=== PATIENT | male | born 1955 | race Caucasian/White ===

== ENCOUNTER 2024-11-16 03:17 | Inpatient (IN) | payer OTHER ==
[2024-11-16] VITALS (9 sets, daily range): BP systolic 113–151; BP diastolic 77–86; PULSE 118–124; RESP 17–22; TEMP 97.2–98.5; O2SAT 94–99
[~2024-11-16] VITALS: Ht 188 cm; Wt 153.8 kg
--- NOTE | 2024-11-16 03:34 | ED.PDOC ---
History of Present Illness HPI Comments 68 y/o M, with a Hx of AFIB, CVA, DM, HTN, morbid obesity, and former tobacco abuse, is BIBA for c/o shortness of breath, productive cough, and fatigue, today. Per EMS report, patient endorses on unprovoked onset of progressively worsening symptoms for the past 3x days. Patient was noted to have been found w ith a SpO2 of 88%RA on scene and was placed on 4LPM O2 en route, with SpO2 improving to 95% upon arrival to ED. Upon time of assessment, patient also c/o bilateral leg swelling that has been ongoing for 1x week unprovoked. He further comments on symptoms improving whenever sitting upright and refutes any recent sick contact exposure along with any additional relevant or pertinent i nformation. Patient denies having any chest pain, palpitations, hemoptysis, fever, chills, or other associated symptoms or modifiers at this time. Time Seen by MD: 03:20 Reviewed Notes: Nurses Notes, Medications, Allergies Allergies: Coded Allergies: NO KNOWN ALLERGIES (Unverified , 11/16/24) Information Source: Patient Mode of Arrival: Ambulatory Severity: Moderate Timing: Days Duration: Since onset Prehospital treatment: None Past Medical History PAST MEDICAL HISTORY: AFIB, CVA, DM, HTN Past Medical History (Other): morbid obesity Surgical History: Denies all surgeries Family History Family History: Unknown Social History Smoker: Non-Smoker, Quit Greater Than 1 Year Alcohol: Denies ETOH Use Drugs: Denies Drug Use Lives In: Home Constitutional: reports: fatigue Respiratory: reports: cough (productive ), shortness of breath Musculoskeletal: reports: others (bilateral leg swelling ) All Other Systems: Reviewed and Negative (negative unless otherwise stated above or in HPI) Physical Exam General Appearance: No Apparent Distress, Obese HEENT: Normal ENT Inspection, Pharynx Normal, TMs Normal Neck: Full Range of Motion, Non-Tender, Normal, Normal Inspection Respiratory: Chest Non-Tender, No Accessory Muscle Use, No Respiratory Distress, Wheezing (bilateral upper and lower lobes ) Cardiovascular: No Edema, No JVD, No Murmur, No Gallop, Normal Peripheral Pulses, Regular Rate/Rhythm Breast Exam: Deferred Gastrointestinal: No Organomegaly, Non Tender, No Pulsatile Mass, Normal Bowel Sounds, Soft Genitalia: Deferred Pelvic: Deferred Rectal: Deferred Extremities: Leg edema (3+ pitting edema, bilaterally), No calf tenderness, Normal capillary refill, Normal range of motion, Non-tender, No pedal edema Musculoskeletal : Apperance: Normal Neurologic: Alert, manager enterprise II-XII nml as Tested, No Motor Deficits, Normal Affect, Normal Mood, No Sensory Deficits Cerebellar Function: Normal Reflexes: Normal Skin: Dry, Normal Color, Warm Lymphatic: No Adenopathy Was a procedure done? Was a procedure done?: No Differential Dx Considerations may include: CT, PE, PNA, URI, viral syndrome, pleural effusions X-Ray, Labs, Meds, VS Vital Signs Date Time Temp Pulse Resp B/P (MAP) Pulse Ox O2 Delivery O2 Flow Rate FiO2 11/16/24 04:41 133 11/16/24 04:37 123 22 94 Nasal Cannula* 4 36 11/16/24 04:10 97.9 132 22 144/91 (108) 94 97.9 11/16/24 03:51 138/97 11/16/24 03:45 132 11/16/24 03:38 20 95 Nasal Cannula* 4 36 11/16/24 03:38 95 Nasal Cannula* 4 36 11/16/24 03:20 98.7 129 15 138/97 (111) 95 Lab Test 11/16/24 05:20 11/16/24 04:41 11/16/24 04:10 11/16/24 03:42 Range/Units Lactic Acid Level Pending Troponin I High Sensitivity Pending 64 *H 60 *H </=54 ng/L Urine Color Yellow Yellow Urine Clarity Turbid H Clear Urine pH 5.5 5.0-9.0 Urine Specific [place] 1.022 1.001-1.035 Urine Protein 1+ H Negative Urine Ketones Negative Negative Urine Blood 2+ H Negative /uL Urine Nitrite Negative Negative Urine Bilirubin Negative Negative Urine Urobilinogen 2 H Negative mg/dL Urine Leukocyte Esterase 3+ Negative /uL Urine RBC 18 0 - 3 /hpf Urine WBC Clumps Present None Seen /hpf Urine Microscopic WBC 131 H 0-3 /HPF Urine Squamous Epithelial Cells Few <5 /hpf Urine Amorphous Crystals Few None Seen /hpf Urine Bacteria None seen None Seen /hpf Urine Glucose 4+ H Normal mg/dL White Blood Count 7.4 4.4-10.8 10^3/uL Red Blood Count 4.30 L 4.5-5.90 10^6/uL Hemoglobin 12.2 L 13.5-17.5 g/dL Hematocrit 37.9 L 41.0-53.0 % Mean Corpuscular Volume 88.0 80.0-100.0 fL Mean Corpuscular Hemoglobin 28.4 28.0-32.0 pg Mean Corpuscular Hemoglobin Concent 32.3 32.0-36.0 g/dL Red Cell Distribution Width 16.8 H 11.8-14.3 % Platelet Count 167 140-450 10^3/uL Mean Platelet Volume 8.2 6.9-10.8 fL Neutrophils (%) (Auto) 80.8 H 37.0-80.0 % Lymphocytes (%) (Auto) 5.2 L 10.0-50.0 % Monocytes (%) (Auto) 13.8 H 0.0-12.0 % Eosinophils (%) (Auto) 0.0 0.0-7.0 % Basophils (%) (Auto) 0.2 0.0-2.0 % Neutrophils # (Auto) 6.0 1.6-8.6 10 ^3/uL Lymphocytes # (Auto) 0.4 0.4-5.4 10 ^3/uL Monocytes # (Auto) 1.0 0-1.3 10 ^3/uL Eosinophils # (Auto) 0 0-0.8 10 ^3/uL Basophils # (Auto) 0 0-0.2 10 ^3/uL Nucleated Red Blood Cells 0.0 % Sodium Level 139 136-145 mmol/L Potassium Level 4.0 3.5-5.1 mmol/L Chloride Level 105 98-107 mmol/L Carbon Dioxide Level 26 20-31 mmol/L Anion Gap 8 5-15 Blood Urea Nitrogen 29 H 9-23 mg/dL Creatinine 1.49 H 0.700-1.30 mg/dL Glomerular Filtration Rate Calc 50 >90 mL/min BUN/Creatinine Ratio 19.5 10.0-20.0 Serum Glucose 131 H 74-106 mg/dL Calcium Level 8.4 L 8.7-10.4 mg/dL B-Type Natriuretic Peptide 1253.77 0-100 pg/mL Test 11/16/24 03:38 Range/Units Influenza Type A Antigen Positive Negative Influenza Type B Antigen Negative Negative SARS-CoV-2 Antigen (Rapid) Negative NEGATIVE Current Medications Medications (Trade) Dose Ordered Sig/Vin Route Start Time Stop Time Status Last Admin Ipratropium [place] (Atrovent Medneb) 0.5 mg ONCE ONCE NEB 11/16/24 03:30 11/16/24 03:31 DC 11/16/24 03:38 Furosemide (Lasix Injection) 40 mg ONCE ONCE IV 11/16/24 03:30 11/16/24 03:31 DC 11/16/24 03:51 Amiodarone HCl 100 ml @ 618 mls/hr ONCE ONCE IV 11/16/24 04:45 11/16/24 04:54 DC 11/16/24 05:03 Oseltamivir Phosphate (Tamiflu 75MG Capsule) 75 mg ONCE ONCE PO 11/16/24 05:00 11/16/24 05:01 DC 11/16/24 05:03 Sodium Chloride 2,400 ml @ 2,400 mls/hr ONCE ONCE IV 11/16/24 05:15 11/16/24 05:23 DC 11/16/24 05:25 Time of 1ST Reevaluation: 03:50 Reevaluation 1ST: Unchanged Patient Education/Counseling: Diagnosis, Treatment Family Education/Counseling: No Family Present Additional Information Ordered tests: EKG, CXR, troponin, BNP, BMP, CBC, influenza A&B and Covid19 ROBERTA antigen tests Concur with other providers interpretation of the following results: CXR Additional information source obtained: EMT Discuss plan and care with medical personal pt fits sepsis criteria, however, the fluid bolus will be stopped, since pt is also volume overloaded. he has influenza A as well. pt will be admitted for further treatments his rate will be controlled with amiodarone, and he will continue eliquis as inpatient. i have ordered lasix for his chf. i will add bumex. he is improving after the lasix Sepsis Sepsis Reasesment Focused Exam Sepsis focused exam: focus exam completed, time: (40) Departure 1 Departure Time of Disposition: 05:09 Impression: Primary Impression: Respiratory failure Qualified Codes: J96.01 - Acute respiratory failure with hypoxia Additional Impressions: Influenza A Reactive airway disease Qualified Codes: J45.41 - Moderate persistent asthma with (acute) exacerbation UTI (urinary tract infection) Qualified Codes: N30.00 - Acute cystitis without hematuria Atrial fibrillation with RVR CHF (congestive heart failure) Qualified Codes: I50.23 - Acute on chronic systolic (congestive) heart failure Disposition: ADMITTED INPATIENT Admit to: ICU Condition: Serious Critical Care Note Critical Care Time?: Yes (55 min-critical care time only) Critical care comment: Due to concerns for patients condition deteriorating, the care required my highest level of attention and readiness to intervene. I assessed the patient, reviewed the medical records, ordered the appropriate tests and treatments, then reassessed for results and responsiveness. I communicated with medical personnel and consultants and formulated a plan of care. Total critical care time excludes any procedures Stability Stability form required: No Heart Score Heart Score: Heart Score Response (Comments) Value History Slightly Suspicious 0 EKG Normal 0 Age >65 2 Risk Factors >3 or Hx ASHD 2 Troponin 1-2 x's Normal limit 1 Total 5 I personally scribed for EMER ALVA MD ([email or web address]) on 11/16/24 at 03:34. Electronically submitted by Bobby Luo ([email or web address]). EMRE ALVA MD Nov 16, 2024 03:34
[2024-11-16] MEDS: IPRATROPIUM BROM 0.5 MG/2.5ML INH SOL NEB ONE (03:38)
[2024-11-16] MEDS: FUROSEMIDE 40 MG/4 ML VIAL IV ONE (03:51)
[2024-11-16 04:00] LABS: Basophils # (auto) 0 10 ^3/uL (0-0.2); Basophils % (auto) 0.2 % (0.0-2.0); Eosinophils # (auto) 0 10 ^3/uL (0-0.8); Hematocrit 37.9 % (41.0-53.0); Hemoglobin 12.2 g/dL (13.5-17.5); Lymphocytes # (auto) 0.4 10 ^3/uL (0.4-5.4); Lymphocytes % (auto) 5.2 % (10.0-50.0); Mean Corpuscular Hemoglobin 28.4 pg (28.0-32.0); Mean Corpuscular Hgb Conc. 32.3 g/dL (32.0-36.0); Monocytes % (auto) 13.8 % (0.0-12.0); Neutrophils % (auto) 80.8 % (37.0-80.0); Platelet Count (auto) 167 10^3/uL (140-450); Red Cell Distribution Width 16.8 % (11.8-14.3); White Blood Cell 7.4 10^3/uL (4.4-10.8)
[2024-11-16 04:16] LABS: Chloride 105 mmol/L (98-107); Sodium 139 mmol/L (136-145)
[2024-11-16 04:17] LABS: Anion Gap 8 (5-15); Carbon Dioxide 26 mmol/L (20-31)
[2024-11-16 04:22] LABS: BUN/Creatinine Ratio 19.5 (10.0-20.0)
[2024-11-16 04:26] LABS: Urine Bacteria None Seen /hpf (None Seen)
[2024-11-16 04:38] LABS: Blood Urea Nitrogen 29 mg/dL (9-23); Calcium 8.4 mg/dL (8.7-10.4); Glucose 131 mg/dL (74-106)
[2024-11-16 04:46] LABS: Urine Amorphous Crystal FEW /hpf (None Seen); Urine Blood 2+ /uL (Negative); Urine Clarity Turbid (Clear); Urine Color Yellow (Yellow); Urine Protein, UAD 1+ (Negative); Urine Specific Gravity 1.022 (1.001-1.035); Urine Squamous Epithelial Cell FEW /hpf (<5); Urine Urobilinogen 2 mg/dL (Negative); Urine WBC 131 /HPF (0-3); Urine WBC Clumps PRESENT /hpf (None Seen); Urine pH 5.5 (5.0-9.0)
[2024-11-16 04:49] LABS: COVID19 ANTIGEN SOFIA FIA NEGATIVE (NEGATIVE); Rapid Influenza B Negative (Negative)
[2024-11-16 04:51] LABS: Rapid Influenza A Positive (Negative)
[2024-11-16] MEDS ORDERED: AMIODARONE 360mg/200mL PREMIX 200 ML IV SCH (05:00)
[2024-11-16] MEDS: AMIODARONE BOLUS KIT 100 ML IV ONE (05:03)
[2024-11-16] MEDS: OSELTAMIVIR 75 MG CAP PO ONE (05:03)
[2024-11-16] MEDS ORDERED: levoFLOXacin 500MG 100 ML IV SCH (05:15)
[2024-11-16] MEDS: AMIODARONE 360mg/200mL PREMIX 200 ML IV ONE ×2 (05:16→17:14)
--- NOTE | 2024-11-16 05:24 | DVH ---
CHEST RADIOGRAPH Indication: sob Technique: Single frontal view of the chest was obtained COMPARISON: None FINDINGS: Lines and Tubes: None Lungs: Multifocal airspace disease. Pleura: No effusion. No pneumothorax. Cardiomediastinal contours: Cardiomegaly Bones: Unremarkable IMPRESSION: Cardiomegaly Multifocal airspace disease.
[2024-11-16] MEDS: SODIUM CHLORIDE 0.9% 2,400 ML IV ONE (05:25)
[2024-11-16] MEDS ORDERED: levoFLOXacin 250MG 50 ML IV ONE (05:30)
[2024-11-16] MEDS: levoFLOXacin 250MG 50 ML IV ONE (05:33)
[2024-11-16] MEDS: BUMETANIDE 1mg/4ml VIAL (0.25mg/ml) IV ONE (05:35)
[2024-11-16] MEDS: NITROGLYCERIN 0.2MG/HR TOPICAL PATCH TD ONE (05:46)
[2024-11-16] MEDS ORDERED: hydrALAZINE HCL 20 MG/ML VL IV PRN (09:45)
[2024-11-16] MEDS ORDERED: HYDROcodone-ACET 5/325MG TAB PO PRN (09:45)
[2024-11-16] MEDS ORDERED: DOCUSATE SOD 100 MG CAP PO PRN (09:45)
[2024-11-16] MEDS ORDERED: ACETAMINOPHEN 325 MG TAB PO PRN (09:45)
[2024-11-16] MEDS ORDERED: DEXTROSE (50%) 50ML SYRG IV PRN (09:45)
[2024-11-16] MEDS ORDERED: ONDANSETRON HCL 4 MG/2 ML VIAL IV PRN (09:45)
--- NOTE | 2024-11-16 10:09 | DVHHP2 ---
History of Present Illness Reason for Visit: Acute respiratory failure with hypoxia History of Present Illness The patient is a 68-year-old male morbidly obese with past medical history of AFib, CVA, DM, and hypertension presented to [facility] ED with complaint of shortness of breaths. Patient reports symptoms progressively get worse with productive cough, fatigue, shortness a breath on exertion, hypoxia, O2 saturation of 88% on room air, increased work of breathing, bilateral extremity swelling, getting worse that prompted this visit. Patient was seen and evaluated in the ED, laboratory data shows WBC 7.4, platelets 167, sodium 139, potassium 4.0, BUN 29, creatinine 1.49, GFR 50, glucose 131, calcium 8.4 troponin 66, BNP 915.30, blood pressure 144/91, heart rate 126, temperature 97.9 F, O2 saturation improved to 94% on oxygen. Chest x-ray revealing cardiomegaly multifocal airspace disease, serology reports positive for influenza A. Patient was started on IV Lasix, given breathing treatment, please see medication orders section in the computer. On my assessment, patient denied chest pain, headache, no dizziness, no diaphoresis, currently on oxygen, no nausea, no vomiting, no fever, no chills. Patient was admitted for further evaluation medical management. Past Medical History AFIB, CVA, DM, HTN Past Surgical History Denies all surgeries Family History Reviewed, noncontributory to the management of this case. Past Social History Patient lives at home, quit smoking greater than 1 year, denies alcohol or illicit drugs abuse. Review of Systems Constitutional: Yes: Weakness, Other (Fatigue); No: Fever, Chills, Sweats, Malaise Eyes: No: Pain, Vision change, Conjunctivae inflammation, Eyelid inflammation, Other, Redness ENT: No: Ear pain, Ear discharge, Nose pain, Nose discharge, Nose congestion, Mouth pain, Mouth swelling, Throat pain, Throat swelling, Other Respiratory: Cough (Productive), Shortness of breath, SOB with excertion, Other (SOB at rest); No: Dry, Wheezing, Hemoptysis, Pleuritic Pain, Sputum, Wheezing Cardiovascular: No: Chest Pain, Palpitations, Orthopnea, Paroxysmal Noc. Dyspnea, Edema, Lt Headedness, Other Gastrointestinal: No: Nausea, Vomiting, Abdominal Pain, Diarrhea, Constipation, Melena, Hematochezia, Other Genitourinary: No Dysuria, No Frequency, No Incontinence, No Hematuria, No Retention, No Other Musculoskeletal: No: other, neck pain, shoulder pain, arm pain, back pain, hand pain, leg pain, foot pain Skin: No: Rash, Lesions, Jaundice, Bruising, Other Neurological: No: Weakness, Numbness, Incoordination, Change in speech, Confusion, Seizures, Other Allergies: Coded Allergies: NO KNOWN ALLERGIES (Unverified , 11/16/24) Medications Current Medications Medications Dose Ordered Sig/Vin Route Start Time Stop Time Status Last Admin Dose Admin Ipratropium [place] 0.5 mg Q4HPRN PRN NEB 11/16/24 09:45 Levalbuterol HCl 0.625 mg Q6HR NEB 11/16/24 12:00 Methylprednisolone Sodium Succinate 40 mg Q8HR IV 11/16/24 14:00 Famotidine 20 mg Q12HR IV 11/16/24 10:00 Levofloxacin 50 ml @ 50 mls/hr DAILY IV 11/16/24 10:00 Ceftriaxone Sodium 50 ml @ 100 mls/hr DAILY@09 IV 11/16/24 09:48 Oseltamivir Phosphate 75 mg Q12HR PO 11/16/24 10:00 11/21/24 09:59 Aspirin 81 mg DAILY PO 11/17/24 10:00 Carvedilol 12.5 mg Q12HR PO 11/16/24 10:00 Hydralazine HCl 10 mg Q6HP PRN IV 11/16/24 09:45 Diagnostic Test (Pha) 1 strip ACHS 11/16/24 11:30 Insulin Human Regular ACHS SC 11/16/24 11:30 Dextrose 50 ml UD PRN IV 11/16/24 09:45 Sodium Chloride 10 ml Q8HR IV 11/16/24 14:00 Acetaminophen/ Hydrocodone Bitart 1 tab Q4HP PRN PO 11/16/24 09:45 Ondansetron HCl 4 mg Q4HP PRN IV 11/16/24 09:45 Docusate Sodium 100 mg BIDPRN PRN PO 11/16/24 09:45 Acetaminophen 650 mg Q6HP PRN PO 11/16/24 09:45 Exam Vital Signs Vital Signs Date Time Temp Pulse Resp B/P (MAP) Pulse Ox O2 Delivery O2 Flow Rate FiO2 11/16/24 09:56 20 151/86 2.0 95 11/16/24 08:00 127 11/16/24 07:25 Nasal Cannula* 11/16/24 06:10 95 11/16/24 04:10 97.9 97.9 General Appearance: Alert, Oriented X3, Cooperative, No acute distress HEENT: Atraumatic, PERRLA, EOMI, Mucous membr. moist/pink Respiratory: Normal air movement, Other (Diminished breath sounds) Cardiovascular: Regular rate, Normal S1, Normal S2, No murmurs Abdominal: Normal bowel sounds, Soft, No tenderness, No hepatospenomegaly, No masses Extremities: No clubbing, No cyanosis, No edema, Normal pulses, No tenderness/swelling Skin: No rashes, No breakdown, No significant lesion Neuro: Normal speech, Normal tone, Sensation intact, Cranial nerves 3-12 NL, Reflexes 2+, Other (Generalized weakness) Psych/Mental Status: Mental status NL, Mood NL Labs/Xrays Labs Test 11/16/24 09:54 11/16/24 05:20 11/16/24 04:10 11/16/24 03:42 Range/Units Lactic Acid Level 0.7 0.4-2.0 mmol/L Urine Color Yellow Yellow Urine Clarity Turbid H Clear Urine pH 5.5 5.0-9.0 Urine Specific [place] 1.022 1.001-1.035 Urine Protein 1+ H Negative Urine Ketones Negative Negative Urine Blood 2+ H Negative /uL Urine Nitrite Negative Negative Urine Bilirubin Negative Negative Urine Urobilinogen 2 H Negative mg/dL Urine Leukocyte Esterase 3+ Negative /uL Urine RBC 18 0 - 3 /hpf Urine WBC Clumps Present None Seen /hpf Urine Microscopic WBC 131 H 0-3 /HPF Urine Squamous Epithelial Cells Few <5 /hpf Urine Amorphous Crystals Few None Seen /hpf Urine Bacteria None seen None Seen /hpf Urine Glucose 4+ H Normal mg/dL White Blood Count 7.4 4.4-10.8 10^3/uL Red Blood Count 4.30 L 4.5-5.90 10^6/uL Hemoglobin 12.2 L 13.5-17.5 g/dL Hematocrit 37.9 L 41.0-53.0 % Mean Corpuscular Volume 88.0 80.0-100.0 fL Mean Corpuscular Hemoglobin 28.4 28.0-32.0 pg Mean Corpuscular Hemoglobin Concent 32.3 32.0-36.0 g/dL Red Cell Distribution Width 16.8 H 11.8-14.3 % Platelet Count 167 140-450 10^3/uL Mean Platelet Volume 8.2 6.9-10.8 fL Neutrophils (%) (Auto) 80.8 H 37.0-80.0 % Lymphocytes (%) (Auto) 5.2 L 10.0-50.0 % Monocytes (%) (Auto) 13.8 H 0.0-12.0 % Eosinophils (%) (Auto) 0.0 0.0-7.0 % Basophils (%) (Auto) 0.2 0.0-2.0 % Neutrophils # (Auto) 6.0 1.6-8.6 10 ^3/uL Lymphocytes # (Auto) 0.4 0.4-5.4 10 ^3/uL Monocytes # (Auto) 1.0 0-1.3 10 ^3/uL Eosinophils # (Auto) 0 0-0.8 10 ^3/uL Basophils # (Auto) 0 0-0.2 10 ^3/uL Nucleated Red Blood Cells 0.0 % Sodium Level 139 136-145 mmol/L Potassium Level 4.0 3.5-5.1 mmol/L Chloride Level 105 98-107 mmol/L Carbon Dioxide Level 26 20-31 mmol/L Anion Gap 8 5-15 Blood Urea Nitrogen 29 H 9-23 mg/dL Creatinine 1.49 H 0.700-1.30 mg/dL Glomerular Filtration Rate Calc 50 >90 mL/min BUN/Creatinine Ratio 19.5 10.0-20.0 Serum Glucose 131 H 74-106 mg/dL Calcium Level 8.4 L 8.7-10.4 mg/dL Test 11/16/24 03:38 Range/Units Influenza Type A Antigen Positive Negative Influenza Type B Antigen Negative Negative SARS-CoV-2 Antigen (Rapid) Negative NEGATIVE PATIENT: TREVIN SOTELO ACCT: [id number] UNIT: [id number] : 1955 LOC: ER ROOM / BED: / AGE / SEX: 68 / M ADM STATUS: REG ER SERVICE [id number] ORDERING PHYSICIAN: EMRE ALVA MD PROCEDURE(s): CXRP - CHEST PORTABLE REASON: sob ORDER NUMBER(s): [id number], ACCESSION NUMBER(s): [id number] CHEST RADIOGRAPH Indication: sob Technique: Single frontal view of the chest was obtained COMPARISON: None FINDINGS: Lines and Tubes: None Lungs: Multifocal airspace disease. Pleura: No effusion. No pneumothorax. Cardiomediastinal contours: Cardiomegaly Bones: Unremarkable IMPRESSION: Cardiomegaly Multifocal airspace disease. Assessment/Plan Assessment/Plan Acute respiratory failure with hypoxia Influenza A Elevated troponin Pneumonia, unspecified organism Reactive airway disease Morbid obesity Moderate persistent asthma with (acute) exacerbation UTI (urinary tract infection) Acute cystitis without hematuria Atrial fibrillation with RVR Acute on chronic systolic (congestive) heart failure Plan 1. Admit to telemetry unit 2. Breathing treatment 3. Pain control management 4. IV antibiotic management 5. Management of fluids and electrolytes 6. Consultation for hospitalist/pulmonology 7. Diagnostic test chest x-ray 8. DVT prophylaxis-on aspirin 9. Repeat labs CBC, CMP in a.m. 10. Home medication reviewed and reconciled 11. Continue with current medical management 12. Treatment plan discussed with patient and RN. Patient verbalized understanding. Plan discussed with: Patient, Other (RN) My Orders Orders - BEVERLY MITCHELL DNP Procedure Category Date Status Time *Consult CONS 11/16/24 Transmitted / 09:31 Ipratropium Medneb PHA 11/16/24 In Process (Atrovent Medneb) 09:45 Levalbuterol Hcl PHA 11/16/24 In Process (Xopenex Medneb) 12:00 Methylprednisolone PHA 11/16/24 In Process Sod Succ (Solu Medrol 14:00 Famotidine Injection PHA 11/16/24 In Process (Pepcid Injection) 10:00 Levofloxacin 250mg PHA 11/16/24 In Process (Levaquin 250mg) 10:00 Urine Bacterial AYSHA 11/16/24 Logged Culture 09:31 Oseltamivir 75mg PHA 11/16/24 In Process Capsule (Tamiflu 75mg 10:00 Troponin-I Hs LAB 11/16/24 In Process 10:31 Troponin-I Hs LAB 11/16/24 Logged 14:00 B-Type Natriuretic LAB 11/16/24 In Process Peptide 09:31 Consistent DIET 11/16/24 Transmitted Carb(Ccho)Diabetes Lunch Carvedilol Tablet PHA 11/16/24 In Process (Coreg Tablet) 10:00 Hydralazine Injection PHA 11/16/24 In Process (Apresoline Inject 09:45 Glucose Blood PHA 11/16/24 In Process (Accu-Chek Comfort 11:30 Insulin R (Human) PHA 11/16/24 In Process (Insulin R) 11:30 Dextrose 50% Syringe PHA 11/16/24 In Process 09:45 Allergies DA 11/16/24 In Process 09:31 Code Status CODE 11/16/24 Transmitted 09:31 Sodium Chloride Lock PHA 11/16/24 In Process (Saline Lock Ns) 14:00 Oxygen Per Hour RT 11/16/24 Transmitted 09:31 Hydrocodone-Acet PHA 11/16/24 In Process 5/325mg Tab ([place] 09:45 Ondansetron Hcl PHA 11/16/24 In Process (Zofran) 09:45 Docusate Sodium PHA 11/16/24 In Process Capsule (Colace 09:45 Complete Blood Count LAB 11/17/24 Verified 04:00 Comprehensive LAB 11/17/24 Verified Metabolic Panel 04:00 Condition: Serious DA 11/16/24 In Process 09:31 Acetaminophen Tablet PHA 11/16/24 In Process (Tylenol Tablet) 09:45 Bedrest With Bathroom DA 11/16/24 In Process Privileg 09:31 Sequential DA 11/16/24 In Process Compression Device Aspirin Tablet PHA 11/17/24 In Process 10:00 Ceftriaxone 1gm/50ml PHA 11/16/24 In Process D5w (Rocephin) 09:48 Problem List: (1) Acute respiratory failure with hypoxia (2) Atrial fibrillation with RVR (3) Influenza A (4) Reactive airway disease (5) UTI (urinary tract infection) (6) Morbid obesity (7) Elevated troponin (8) Acute cystitis without hematuria (9) Pneumonia, unspecified organism (10) Moderate persistent asthma with (acute) exacerbation (11) Acute on chronic systolic (congestive) heart failure Date of Service: Nov 16, 2024 Billing Provider: BEVERLY MITCHELL DNP Common Visit Codes: 53323-FLBXJSI INP/OBS CARE (HIGH) BEVERLY MITCHELL DNP Nov 16, 2024 10:09
[2024-11-16] MEDS: cefTRIAXone 1GM/50ML D5W 50 ML IV SCH (10:12)
[2024-11-16] MEDS: methylPREDNISolone SOD SUCC 125 MG/2 ML VL IV ONE (10:15)
[2024-11-16] MEDS ORDERED: MORPHINE SULFATE INJ 2 MG/ml SYRG IV PRN (10:15)
[2024-11-16] MEDS ORDERED: NITROGLYCERIN 0.4 MG SL TAB SL PRN (10:15)
[2024-11-16] MEDS: ASPirin 81 mg TAB PO ONE (10:18)
[2024-11-16] MEDS: OSELTAMIVIR 75 MG CAP PO SCH (10:19)
[2024-11-16] MEDS: CARVEDILOL 12.5 MG TAB PO SCH ×2 (10:19→23:16)
[2024-11-16] MEDS: levoFLOXacin 250MG 50 ML IV SCH (10:44)
[2024-11-16] MEDS: FAMOTIDINE (10MG/ML) 2ML VL IV SCH (10:44)
[2024-11-16] MEDS: LEVALBUTEROL HCL 1.25 MG/3 ML NEB NEB SCH (11:01)
[2024-11-16] MEDS: ACCU-CHEK COMFORT CURVE STRIP VI SCH (11:59)
[2024-11-16] MEDS: InsuLIN REG 1unit/0.01ml Soln (100units/ml) SC SCH (11:59)
[2024-11-16] MEDS: SODIUM CHLOR 0.9% PF (SALINE LOCK) 10ML VIAL/SYR IV SCH (13:51)
[2024-11-16] MEDS: methylPREDNISolone SOD SUCC 40 MG/ML VL IV SCH (13:52)
--- NOTE | 2024-11-16 14:38 | DVHSR ---
APPROVED REPORT EXAM: Two-dimensional and M-mode echocardiogram with Doppler and color Doppler. Blood Pressure: 117/85 mmHg INDICATION Heart Failure RISK FACTORS Height: 6'1", Weight: 220 DIMENSIONS LVDd6.3 (3.8-5.7cm)LA (2D)5.6 (1.9-4.0cm)Aortic Root3.9 (2.0-3.7cm) LVDs5.5 (2.5-4.0cm)LA (MM) (1.9-4.0cm)Aortic Cusp Exc2.2 (1.5-2.0cm) EF (%) 27.0 (55-70%)Rt. Atrium6.3 (1.9-4.0cm)Asc. Aorta cm IVSd1.7 (0.7-1.1cm)RV (D)5.2 (1.8-2.4cm) PWd1.4 (0.7-1.1cm) Mitral Valve MitralMitral Stenosis E/A ratio0.02D MVAcm2 Aortic Valve Aortic ValveAortic Stenosis V10.68m/Cookie Mean GR.2mmHg V20.88m/Cookie Peak GR.3mmHg LVOT Diameter2.5 (1.8-2.4cm)Doppler AVA3.79cm2 Tricuspid Valve TR Velocity2.56m/s [id number] LEFT VENTRICLE The left ventricle is dilated in size. Wall thickness is femtezln-vu-tqiuur early increased. Ejecti on fraction is decreased and is estimated at 25%. Patient is tachycardic at the time of the study th at is limits interpretation of ejection fraction. There is global hypokinesis. There is flattening of the intraventricular septum during diastole suggestive of right-sided volume overload. Diastolic function is indeterminate. RIGHT VENTRICLE The right ventricle is severely dilated in size. Systolic function is moderately decreased. ATRIA Left atrium is moderately dilated in size. Right atrium is severely dilated in size. The intra-atri al septum is not well visualized. MITRAL VALVE Normal in structure and function. There is mild mitral regurgitation. PULMONIC VALVE Likely normal. TRICUSPID VALVE There is wjzpiuzw-pm-jyeruw tricuspid regurgitation. Severity is not well assessed. PA systolic pre ssure is estimated at 45-50 mm Hg. AORTIC VALVE Normal structure and function. GREAT VESSELS Aortic root measures 3.9 cm in diameter at the level of the sinuses of Valsalva. Proximal ascending aorta isn't visualized. PERICARDIAL EFFUSION There is small circumferential pericardial effusion. IVC is dilated in size. Other Information Quality : Technically LimitedRhythm : Technically limited study due to body habitus and coughing Conclusion The study is technically limited. Dilated left ventricle with severely decreased systolic function. The patient was tachycardic at the time of the study which limits interpretation of ejection fraction . Ejection fraction is estimated at 25%. There is global hypokinesis and flattening of the intraventricular septum during diastole suggestive of right-sided volume overload. Lgqipken-id-fbhpzy left ventricular hypertrophy most prominent in the septum. Severely dilated right ventricle with moderately decreased systolic function. Severely dilated right atrium and moderately dilated left atrium. Vpasqdlt-kt-wynqgx tricuspid regurgitation. PA systolic pressure is estimated at 45-50 mm Hg. Small circumferential pericardial effusion. There is no prior study for comparison.
--- NOTE | 2024-11-16 17:04 | DVHINCON2 ---
Date Seen: Nov 16, 2024 Referring Physician RAUL Kelly Reason for Consultation CHF History of Present Illness This is a 68-year-old man who presented to the emergency room via EMS with a chief complaint of flu-like symptoms for four days. The patient presented with complaints of flu-like symptoms including shortness of breath, a productive cough, generalized weakness, some abdominal pain and bilateral lower extremity edema. He was found with an oxygen saturation level of 88% on room air for which he was provided supplemental oxygenation with improved O2 sats. Denies chest pain, palpitations, diaphoresis, dizziness, or syncopal events. He underwent multiple 12 lead electrocardiograms revealing an atrial fibrillation rhythm with a rapid ventricular rate and an associated right bundle branch block. Serial troponin levels peaked at 66 ng/L. The patient is a poor historian and could not provide cardiac information. Significant medical history includes paroxysmal atrial fibrillation on amiodarone/Eliquis therapy, congestive heart failure, hypertension, diabetes mellitus type 2, history of CVA, and obesity. Past Medical History Past medical history reviewed. No other significant than mentioned above. Past Surgical History Left knee surgery Family History Unable to retrieve family history at this time. Social History Unable to retrieve social history at this time. Allergies: Coded Allergies: NO KNOWN ALLERGIES (Unverified , 11/16/24) Home Meds Home medications reviewed. Current Medications Current Medications Medications (Trade) Dose Ordered Sig/Vin Route PRN Reason Start Time Stop Time Status Last Admin Levofloxacin/ Dextrose 100 ml @ 50 mls/hr Q24H IV 11/16/24 05:15 11/16/24 05:26 DC Ipratropium [place] (Atrovent Medneb) 0.5 mg Q4HPRN PRN NEB SHORTNESS OF BREATH 11/16/24 09:45 Levalbuterol HCl (Xopenex Medneb) 0.625 mg Q6HR NEB 11/16/24 12:00 11/16/24 11:01 Methylprednisolone Sodium Succinate (Solu Medrol) 40 mg Q8HR IV 11/16/24 14:00 Famotidine (Pepcid Injection) 20 mg Q12HR IV 11/16/24 10:00 11/16/24 10:44 Levofloxacin 50 ml @ 50 mls/hr DAILY IV 11/16/24 10:00 11/16/24 10:44 Ceftriaxone Sodium 50 ml @ 100 mls/hr DAILY@09 IV 11/16/24 09:48 11/16/24 10:12 Oseltamivir Phosphate (Tamiflu 75MG Capsule) 75 mg Q12HR PO 11/16/24 10:00 11/21/24 09:59 11/16/24 10:19 Aspirin 81 mg DAILY PO 11/17/24 10:00 Carvedilol (Coreg Tablet) 12.5 mg Q12HR PO 11/16/24 10:00 11/16/24 10:19 Hydralazine HCl (Apresoline Injection) 10 mg Q6HP PRN IV SBP>150 11/16/24 09:45 Diagnostic Test (Pha) (Accu-Chek Comfort Curve T) 1 strip ACHS 11/16/24 11:30 11/16/24 11:59 Insulin Human Regular (InsuLIN R) ACHS SC 11/16/24 11:30 11/16/24 11:59 Dextrose 50 ml UD PRN IV Blood Sugar LESS THAN 60 11/16/24 09:45 Sodium Chloride (Saline Lock Ns) 10 ml Q8HR IV 11/16/24 14:00 11/16/24 13:51 Acetaminophen/ Hydrocodone Bitart ([place] 5/325MG Tab) 1 tab Q4HP PRN PO MODERATE PAIN (4-6 PAIN SCALE) 11/16/24 09:45 Ondansetron HCl (Zofran) 4 mg Q4HP PRN IV NAUSEA / VOMITING 11/16/24 09:45 Docusate Sodium (Colace Capsule) 100 mg BIDPRN PRN PO FOR CONSTIPATION 11/16/24 09:45 Acetaminophen (Tylenol Tablet) 650 mg Q6HP PRN PO PAIN SCALE 1-3 OR TEMP>100.4 11/16/24 09:45 Nitroglycerin (Ntrostat Sublingual) 0.4 mg Q5MINP PRN SL FOR CHEST PAIN 11/16/24 10:15 Morphine Sulfate 2 mg Q30M PRN IV FOR CHEST PAIN 11/16/24 10:15 Furosemide (Lasix Injection) 40 mg DAILY IV 11/17/24 10:00 Review of Systems Constitutional: Generalized weakness, flu-like symptoms, Ears, Nose, & Throat: No symptom reported Eyes: No symptom reported Neurological: No symptoms reported Pulmonary/Respiratory: SOB Cardiovascular: BLE edema Gastrointestinal: No symptom reported Genitourinary: No symptom reported Musculoskeletal: No symptom reported Skin: No symptom reported Psychiatric: No symptom reported Endocrine: No symptom reported Hemotologic/Lymphatic: No symptom reported Vital Signs Vital Signs Date Time Temp Pulse Resp B/P (MAP) Pulse Ox O2 Delivery O2 Flow Rate FiO2 11/16/24 14:00 95.3 105/69 (81) 95.3 11/16/24 11:19 120 11/16/24 11:07 20 98 11/16/24 11:01 Nasal Cannula* 6 44 Physical Exam General Appearance: Lethargic. Obese. Overloaded. Acute respiratory distress, tachypneic Head Exam: Normal inspection Neck Exam: Normal inspection. Non-tender. Normal alignment Pulmonary/Respiratory: Coarse bilateral breath sounds. O2 via NC. Tachypneic Cardiovascular/Chest: Irregularly irregular rate and rhythm. A-fib with RVR. + JVD. Peripheral Pulses: 2+ Radial (R). 2+ Radial (L). 2+ Pedal (R). 2+ Pedal (L) Abdominal Exam: Normal bowel sounds. Soft. Nontender. No hepatospenomegaly. No masses Ankle Exam: Positive ankle edema, ++ Lower extremities: Positive lower extremity edema, ++ Neuro/Mental Status: A&O x3. Coherent. Somewhat poor historian Thoughts/Psych: Normal thought pattern. Appearance: Acute respiratory distress Skin Exam: Hyperpigmented BLE Labs/Diagnostic Data Labs Test 11/16/24 14:11 11/16/24 11:48 11/16/24 09:54 11/16/24 05:20 Range/Units Troponin I High Sensitivity 48 </=54 ng/L POC Glucose 156 H 70-106 mg/dl B-Type Natriuretic Peptide 915.30 0-100 pg/mL Lactic Acid Level 0.7 0.4-2.0 mmol/L Test 11/16/24 04:10 11/16/24 03:42 11/16/24 03:38 Range/Units Urine Color Yellow Yellow Urine Clarity Turbid H Clear Urine pH 5.5 5.0-9.0 Urine Specific [place] 1.022 1.001-1.035 Urine Protein 1+ H Negative Urine Ketones Negative Negative Urine Blood 2+ H Negative /uL Urine Nitrite Negative Negative Urine Bilirubin Negative Negative Urine Urobilinogen 2 H Negative mg/dL Urine Leukocyte Esterase 3+ Negative /uL Urine RBC 18 0 - 3 /hpf Urine WBC Clumps Present None Seen /hpf Urine Microscopic WBC 131 H 0-3 /HPF Urine Squamous Epithelial Cells Few <5 /hpf Urine Amorphous Crystals Few None Seen /hpf Urine Bacteria None seen None Seen /hpf Urine Glucose 4+ H Normal mg/dL White Blood Count 7.4 4.4-10.8 10^3/uL Red Blood Count 4.30 L 4.5-5.90 10^6/uL Hemoglobin 12.2 L 13.5-17.5 g/dL Hematocrit 37.9 L 41.0-53.0 % Mean Corpuscular Volume 88.0 80.0-100.0 fL Mean Corpuscular Hemoglobin 28.4 28.0-32.0 pg Mean Corpuscular Hemoglobin Concent 32.3 32.0-36.0 g/dL Red Cell Distribution Width 16.8 H 11.8-14.3 % Platelet Count 167 140-450 10^3/uL Mean Platelet Volume 8.2 6.9-10.8 fL Neutrophils (%) (Auto) 80.8 H 37.0-80.0 % Lymphocytes (%) (Auto) 5.2 L 10.0-50.0 % Monocytes (%) (Auto) 13.8 H 0.0-12.0 % Eosinophils (%) (Auto) 0.0 0.0-7.0 % Basophils (%) (Auto) 0.2 0.0-2.0 % Neutrophils # (Auto) 6.0 1.6-8.6 10 ^3/uL Lymphocytes # (Auto) 0.4 0.4-5.4 10 ^3/uL Monocytes # (Auto) 1.0 0-1.3 10 ^3/uL Eosinophils # (Auto) 0 0-0.8 10 ^3/uL Basophils # (Auto) 0 0-0.2 10 ^3/uL Nucleated Red Blood Cells 0.0 % Sodium Level 139 136-145 mmol/L Potassium Level 4.0 3.5-5.1 mmol/L Chloride Level 105 98-107 mmol/L Carbon Dioxide Level 26 20-31 mmol/L Anion Gap 8 5-15 Blood Urea Nitrogen 29 H 9-23 mg/dL Creatinine 1.49 H 0.700-1.30 mg/dL Glomerular Filtration Rate Calc 50 >90 mL/min BUN/Creatinine Ratio 19.5 10.0-20.0 Serum Glucose 131 H 74-106 mg/dL Calcium Level 8.4 L 8.7-10.4 mg/dL Influenza Type A Antigen Positive Negative Influenza Type B Antigen Negative Negative SARS-CoV-2 Antigen (Rapid) Negative NEGATIVE Assessment Sepsis with PNA/Influenza A Acute hypoxic respiratory failure secondary to above Acute on chronic decompensated HFrEF, NYHA Class IV Paroxysmal atrial fibrillation with rapid ventricular rate, on amiodarone/Eliquis at home NSTEMI likely type II secondary to above Hypertension Diabetes mellitus Type II Hx of CVA Likely ERICA on CKD Obesity Plan/Recommendation We will continue the following plan/recommendations (Dr. Thomas): * Echocardiogram revealed EF 25% * There is global hypokinesis and flattening of the intraventricular septum during diastole suggestive of right-sided volume overload. M [id number]-[id number] left ventricular hypertrophy most prominent in the septum. Severely dilated right ventricle with moderately decreased systolic function. Severely dilated right atrium and moderately dilated left atrium. [id number] tricuspid regurgitation. PA systolic pressure is estimated at 45-50 mmHg. Small circumferential pericardial effusion. * Preload and afterload reduction as tolerated * Initiate GDMT for CHF as hemodynamics permit * Hold Eliquis therapy. Initiate therapeutic Lovenox * Antiarrhythmic, initiate amiodarone drip * ABX therapy per primary care team * Monitor ECG changes closely and notify Thank you for allowing us to participate in this patient's care. Please call if you have any questions or concerns. Critical care time: 40 min. This medical document was created using an electronic medical record system with voice recognition software and computerized dictation system. Although this document has been carefully reviewed, there might still be some phonetic and typographical errors. Occasional wrong-word or ``sound-alike substitutions may have occurred due to the inherent limitations of voice recognition software. These areas are purely typographical due to imperfections of the software programs and do not reflect any compromise in the patient's medical care. Please read the chart carefully and recognize, using context, where these substitutions have occurred. Plan discussed with: Patient, Other NYHA Physical activity limitations: Class4(Severe)discomfort (w any activit,symptoms at rest) Date of Service: Nov 16, 2024 Billing Provider: KATELYN FUCHS GRAV[employer] PROSPECTING OBSERVER HELPER Cardiology Common Codes: 30441-[id number] CARE 30-[address] [facility] Nov 16, 2024 17:04
--- NOTE | 2024-11-16 17:14 | ECG ---
[facility] Test Date: 2024-11-16 Test Time: 03:45:54 Pat Name: TREVIN SOTELO Department: ED Room: 0297T Gender: M Calculation Reviewer: LEYDA : 1955 Requested By: EMRE ALVA Order Number: [id number] Reading MD: Rich Velasquez Measurements Intervals [place] Rate: 132 P: 0 IN: 0 QRS: 103 QRSD: 169 T: -1 QT: 352 QTc: 522 Interpretive Statements Atrial fibrillation Right bundle branch block Baseline wander in lead(s) V2 Electronically Signed On 11-18-2024 8:52:10 PST by Rich Velasquez Please click the below link to view image of tracing.
--- NOTE | 2024-11-16 17:15 | ECG ---
[facility] Test Date: 2024-11-16 Test Time: 04:41:15 Pat Name: TREVIN SOTELO Department: ED Room: 0297T Gender: M Crime Investigator Special Agent: LEYDA : 1955 Requested By: EMRE ALVA Order Number: [id number] Reading MD: Rich Velasquez Measurements Intervals [place] Rate: 133 P: 172 [place]: 76 QRS: 197 QRSD: 177 T: 20 QT: 351 QTc: 523 Interpretive Statements Sinus or ectopic atrial tachycardia Atrial premature complex Consider dextrocardia Baseline wander in lead(s) V1,V4 Electronically Signed On 11-18-2024 8:52:14 PST by Rich Velasquez Please click the below link to view image of tracing.
[2024-11-16 17:23] LABS: Magnesium 2.5 mg/dL (1.6-2.6)
[2024-11-16] MEDS: FUROSEMIDE 40 MG/4 ML VIAL IV SCH (18:13)
[2024-11-16] MEDS: IPRATROPIUM BROM 0.5 MG/2.5ML INH SOL NEB PRN (19:17)
[2024-11-16] MEDS: ENOXAPARIN SOD 100 MG/1 ML SYRINGE SC SCH (23:15)
[2024-11-16] MEDS: AMIODARONE 360mg/200mL PREMIX 200 ML IV SCH (23:39)
[2024-11-17] VITALS (16 sets, daily range): BP systolic 103–133; BP diastolic 55–95; PULSE 60–125; RESP 17–20; TEMP 97.3–98.5; O2SAT 91–100
[2024-11-17 08:09] LABS: Hematocrit 39.1 % (41.0-53.0); Hemoglobin 12.6 g/dL (13.5-17.5); Mean Corpuscular Hemoglobin 28.4 pg (28.0-32.0); Mean Corpuscular Hgb Conc. 32.4 g/dL (32.0-36.0); Mean Corpuscular Volume 87.8 fL (80.0-100.0); Platelet Count (auto) 168 10^3/uL (140-450); Red Blood Cells 4.45 10^6/uL (4.5-5.90); Red Cell Distribution Width 16.5 % (11.8-14.3); White Blood Cell 7.3 10^3/uL (4.4-10.8)
--- NOTE | 2024-11-17 08:10 | DVH ---
EXAM: XR Chest, 1 View CLINICAL INDICATION: PNA/CHF TECHNIQUE: Frontal view of the chest. COMPARISON: XY CHEST PORTABLE on DOS: 11/16/24 FINDINGS: LUNGS AND PLEURAL SPACES: See below. HEART: Cardiomegaly with pulmonary congestion and edema. Superimposed pneumonia cannot be excluded. MEDIASTINUM: Unremarkable. Normal mediastinal contour. BONES/JOINTS: Unremarkable. No acute fracture. OTHER FINDINGS: . . IMPRESSION: Cardiomegaly with pulmonary congestion and edema. Superimposed pneumonia cannot be excluded.
[2024-11-17 08:30] LABS: Alanine Aminotransferase 26 U/L (7-40); Albumin 3.4 g/dL (3.2-4.8); Alkaline Phosphatase 106 U/L (46-116); Anion Gap 7 (5-15); Aspartate Aminotransferase 23 U/L (13-40); BUN/Creatinine Ratio 22.6 (10.0-20.0); Carbon Dioxide 26 mmol/L (20-31); Chloride 106 mmol/L (98-107); Potassium 3.8 mmol/L (3.5-5.1); Sodium 139 mmol/L (136-145)
[2024-11-17 08:31] LABS: Bilirubin, Total 0.4 mg/dL (0.2-1.0); Blood Urea Nitrogen 37 mg/dL (9-23); Calcium 8.3 mg/dL (8.7-10.4); Glucose 226 mg/dL (74-106); Total Protein 6.7 g/dL (5.7-8.2)
[2024-11-17 08:48] LABS: Band Neutrophils % (manual) 0; Basophils % (manual) 0 (0.0-2.0); Blast Cells 0; Eosinophils % (manual) 0 (0-7); Metamyelocytes % 0; Myelocytes % 0; Promyelocytes % 0; Reactive Lymphocytes 0
[2024-11-17] MEDS ORDERED: FUROSEMIDE 40 MG/4 ML VIAL IV SCH (10:00)
[2024-11-17] MEDS: ASPirin 81 mg TAB PO SCH (10:59)
--- NOTE | 2024-11-17 11:11 | DVHPN2 ---
Consult Progress Note Date Seen: Nov 17, 2024 Subjective Review of Systems: CVS:Normal, RESPIRATORY:Abnormal, NEURO:Normal Other Systems: C/o mild SOB, improving Objective vital signs Vital Sign Date Time Temp Pulse Resp B/P (MAP) Pulse Ox O2 Delivery O2 Flow Rate FiO2 11/17/24 09:00 97.9 87 17 109/76 (87) 94 97.9 11/17/24 06:27 Nasal Cannula 5.0 11/17/24 06:27 40 Total Intake and Output 11/16/24 11/16/24 11/17/24 14:59 22:59 06:59 Intake Total 266.67 ml 133.32 ml 700 ml Output Total 1450 ml 600 ml Balance 266.67 ml -1316.68 ml 100 ml medications Current Medications Medications Dose Ordered Sig/Vin Route Start Time Stop Time Status Last Admin Dose Admin Ipratropium [place] 0.5 mg Q4HPRN PRN NEB 11/16/24 09:45 11/17/24 06:27 0.5 MG Levalbuterol HCl 0.625 mg Q6HR NEB 11/16/24 12:00 11/17/24 06:27 0.625 MG Methylprednisolone Sodium Succinate 40 mg Q8HR IV 11/16/24 14:00 11/17/24 06:22 40 MG Famotidine 20 mg Q12HR IV 11/16/24 10:00 11/16/24 23:15 20 MG Levofloxacin 50 ml @ 50 mls/hr DAILY IV 11/16/24 10:00 11/16/24 10:44 50 MLS/HR Ceftriaxone Sodium 50 ml @ 100 mls/hr DAILY@09 IV 11/16/24 09:48 11/16/24 10:12 100 MLS/HR Oseltamivir Phosphate 75 mg Q12HR PO 11/16/24 10:00 11/21/24 09:59 11/16/24 23:15 75 MG Aspirin 81 mg DAILY PO 11/17/24 10:00 Hydralazine HCl 10 mg Q6HP PRN IV 11/16/24 09:45 Diagnostic Test (Pha) 1 strip ACHS 11/16/24 11:30 11/17/24 05:58 1 STRIP Insulin Human Regular ACHS SC 11/16/24 11:30 11/17/24 06:02 6 UNITS Dextrose 50 ml UD PRN IV 11/16/24 09:45 Sodium Chloride 10 ml Q8HR IV 11/16/24 14:00 11/17/24 06:00 10 ML Acetaminophen/ Hydrocodone Bitart 1 tab Q4HP PRN PO 11/16/24 09:45 Ondansetron HCl 4 mg Q4HP PRN IV 11/16/24 09:45 Docusate Sodium 100 mg BIDPRN PRN PO 11/16/24 09:45 Acetaminophen 650 mg Q6HP PRN PO 11/16/24 09:45 Nitroglycerin 0.4 mg Q5MINP PRN SL 11/16/24 10:15 Morphine Sulfate 2 mg Q30M PRN IV 11/16/24 10:15 Carvedilol 3.125 mg Q12HR PO 11/16/24 22:00 11/16/24 23:16 3.125 MG Furosemide 40 mg BIDD IV 11/16/24 18:00 11/17/24 06:23 40 MG Enoxaparin Sodium 100 mg Q12HR SC 11/16/24 22:00 11/16/24 23:15 100 MG Examination: GENERAL:Abnormal (Lethargic), LUNGS:Abnormal (Bibasilar crackles), CVS:Abnormal (BLE edema +++. A-fib with intermittent RVR up to 130s bpm), SKIN:Abnormal (Left ankle woung. BLE hyperpigmentation), NEURO:Normal (Improved) laboratory and microbiology Laboratory Tests 11/17/24 07:15 Test 11/17/24 07:15 Range/Units Serum Glucose 226 H 74-106 mg/dL Problem List/Assessment/Plan Problem List/Assessment/Plan Sepsis with PNA/Influenza A Acute hypoxic respiratory failure secondary to above Acute on chronic decompensated HFrEF, NYHA Class IV Paroxysmal atrial fibrillation with rapid ventricular rate, Stage III, on amiodarone/Eliquis at home NSTEMI likely type II secondary to above Hypertension Diabetes mellitus Type II Hx of CVA Likely ERICA on CKD Obesity Plan/Recommendation (Dr. Velasquez) * Echocardiogram revealed EF 25% * There is global hypokinesis and flattening of the intraventricular septum during diastole suggestive of right-sided volume overload. Cretthty-eg-kbmdae left ventricular hypertrophy most prominent in the septum. Severely dilated right ventricle with moderately decreased systolic function. Severely dilated right atrium and moderately dilated left atrium. Fntvntuu-fh-jyjhok tricuspid regurgitation. PA systolic pressure is estimated at 45-50 mmHg. Small circumferential pericardial effusion. * Preload and afterload reduction as tolerated * GDMT for CHF as hemodynamics and renal function permit * Hold Eliquis therapy. Continue therapeutic Lovenox * [id number] Score 4 points. HAS-BLED Score 4 points * Antiarrhythmic, continue amiodarone drip per pharmacy protocol * Obtain a bilateral lower extremity arterial duplex r/o PAD * ABX therapy per primary care team * Monitor ECG changes closely and notify * Consider Nephrology consultation Thank you for allowing us to participate in this patient's care. Please call if you have any questions or concerns. This medical document was created using an electronic medical record system with voice recognition software and computerized dictation system. Although this document has been carefully reviewed, there might still be some phonetic and typographical errors. Occasional wrong-word or ``sound-alike substitutions may have occurred due to the inherent limitations of voice recognition software. These areas are purely typographical due to imperfections of the software programs and do not reflect any compromise in the patient's medical care. Please read the chart carefully and recognize, using context, where these substitutions have occurred. Plan discussed with: Patient, Other Date of Service: Nov 17, 2024 Billing Provider: KATELYN FUCHS Cardiology Common Codes: 54385-[facility] KATELYN FUCHS Nov 17, 2024 11:11
[2024-11-17 12:03] LABS: Lymphocytes % (manual) 4 (10.0-50.0); Monocytes % (manual) 5 (0-12); Platelet Estimate Adequate
--- NOTE | 2024-11-17 13:20 | DVH ---
Bilateral Lower Extremity Arterial Duplex Clinical History: Hyperpigmentation/wound Comparison: None Technique: Duplex Doppler evaluation including color Doppler and spectral/pulsed waveform analysis of the lower extremity arteries was performed. Findings: RIGHT: Peak systolic velocities are less than 150 centimeter/second. The waveforms are multiphasic. LEFT: Peak systolic velocities are less than 150 centimeter/second. The waveforms are multiphasic. Unable to visualize the left distal tibial artery and dorsalis pedis secondary to overlying bandages. IMPRESSION: No hemodynamically significant stenosis based on peak systolic velocity criteria. REFERENCE VALUES, [facility] ([facility]) vascular Imaging Lab Criteria: Peak systolic velocity ranges (in cm/sec) are as follows: <150 cm/s - <20 % stenosis 150-200 cm/s - 20-49% stenosis 200-300 cm/s - 50-75% stenosis >300 cm/s -> 75% stenosis
--- NOTE | 2024-11-17 14:41 | DVHPN2 ---
Assessment/Plan Assessment/Plan Progress note 68M with HFrEF, afib on eliquis, morbid obesity, admitted for flu a PNA Physical exam Alert oriented x3 Morbidly obese Using respiratory muscle B/l crackles s1 s2 tachy JVD mandible Abdomen distended, fluid shift LE edema b/l, chronic venous changes Labs imaging and echo reviewed Assessment and plan acute on chronic hypoxic respiratory failure 2/2 acute on chronic systolic heart failure likely right heart failure possible pulm HTN Flu A PNA Morbid obesity Afib with RVR on eliquis DM old stroke CKD c/w o2 supp, trial bipap get gas tamiflu avoid steroid for now 2/2 flu maintain spo2> 94% amio, full AC rate control iss fsx4 basal insulin trend cr c/w diuresis, goal -2-3 L cardio pulm consult appreciated low treshold for intubation dvt ppx on full ac diet cardiac, npo on bipap code status full code d/w patient re intubation, pt okay medical decision maker dwain (daughter) [phone] mins of critical care time spent Plan discussed with: Patient My Orders Orders - LEYLA BLANCO MD Procedure Category Date Status Time Furosemide Injection PHA 11/17/24 In Process (Lasix Injection) 18:00 Abg W/ Co-Ox RT 11/17/24 Logged 14:03 Bipap/Cpap For Sleep RT 11/17/24 Logged Apnea 14:08 BIPAP RT 11/17/24 Logged 14:08 Date of Service: Nov 17, 2024 Billing Provider: LEYLA BLANCO MD Common Visit Codes: [id number] CARE 30-74 MIN Secondary Visit Codes: [id number] CARE PLAN 30 MINUTES LEYLA BLANCO MD Nov 17, 2024 14:41
--- NOTE | 2024-11-17 16:08 | MEDREC ---
[facility] Intervention Section I [facility] Intervention: Duplication of therapy (DUPLICATION CEFTRIAXONE / LEVOFLOXACIN - PLEASE CONSIDER D/C LEVOFLOXACIN AND ADD DOXYCYCLINE FOR ATYPICAL MICROORGANISMS), Review courses of therapy (DUE TO PROLONG QTc > 500 PLEASE CONSIDER D/C LEVOFLOXACIN) ORLANDO ARANA PHARMACIST Nov 17, 2024 16:08
[2024-11-17] MEDS: FUROSEMIDE 100 MG/10ML VIAL IV SCH (18:46)
--- NOTE | 2024-11-17 20:08 | DVHINCON2 ---
Date of service: Nov 16, 2024 Referring Physician Tong Jacques MD Reason for Consultation Acute on chronic hypoxic respiratory failure, pulmonary hypertension, influenza A, pneumonia History of Present Illness A 68-year-old morbidly obese man with past medical history of AFib, CVA, DM, and hypertension presents to ED today with c/o shortness of breath. Patient reports symptoms progressively worsened with productive cough, fatigue, shortness of breath on exertion, hypoxia w/ O2 sat of 88% on RA, increased work of breathing, and bilateral extremity swelling, prompting this visit. ED workup notable for WBC 7.4, platelets 167, sodium 139, potassium 4.0, BUN 29, creatinine 1.49, GFR 50, glucose 131, calcium 8.4 troponin 66, BNP 915.30. O2 saturation improved to 94% on oxygen. Chest x-ray revealed cardiomegaly, multifocal airspace disease. Serology positive for influenza A. Patient was admitted for further care and pulmonary consultation is requested for evaluation and management due to the above findings. Review of Systems: 14-point review of systems negative unless otherwise noted above. Past Medical History: AFib, CVA, DM, and hypertension Past Surgical History: None Medications: Reviewed. Allergies: No known drug allergies. Family History: No family history of premature CAD. No family history of lung disorders. Social History: Former smoker - quit greater than 1 year ago. No alcohol or illicit drug use. Allergies: Coded Allergies: NO KNOWN ALLERGIES (Unverified , 11/16/24) Current Medications Current Medications Medications (Trade) Dose Ordered Sig/Vin Route PRN Reason Start Time Stop Time Status Last Admin Aspirin 81 mg DAILY PO 11/17/24 10:00 11/17/24 10:59 Furosemide (Lasix Injection) 40 mg DAILY IV 11/17/24 10:00 11/16/24 16:55 DC Carvedilol (Coreg Tablet) 3.125 mg Q12HR PO 11/16/24 22:00 11/17/24 11:01 Enoxaparin Sodium (Lovenox) 100 mg Q12HR SC 11/16/24 22:00 11/17/24 10:59 Furosemide (Lasix Injection) 80 mg BIDD IV 11/17/24 18:00 11/17/24 18:46 Vital Signs Vital Signs Date Time Temp Pulse Resp B/P (MAP) Pulse Ox O2 Delivery O2 Flow Rate FiO2 11/17/24 19:58 120 20 97 11/17/24 19:48 Nasal Cannula* 5 40 11/17/24 18:46 109/84 11/17/24 17:00 97.5 97.5 Physical Exam Gen.: Patient lying in bed in no apparent distress. On supplemental oxygen. Head: Normocephalic, atraumatic. Eyes: EOMI/PERRLA. Ears: Normal hearing. Normal anatomy. Neck/trachea: Trachea midline, supple. Nose: Normal external anatomy. Mouth: Moist mucous membranes. Chest: Decreased air entry bilaterally. No wheezing or rhonchi. Cardiovascular: Positive S1, positive S2. Regular rate and rhythm. Abdomen: Positive bowel sounds in all 4 quadrants. Soft, non-tender, non- distended. : Deferred. Rectal: Deferred. Skin: Warm, dry. Intact. Extremities: 2+ radial pulses bilaterally. No lower extremity edema. Neuro: Awake, alert, oriented x3. No gross motor or sensory deficits. Cranial nerves II through XII intact. Gait not assessed. Labs/Diagnostic Data Labs Test 11/17/24 16:36 11/17/24 07:15 11/17/24 05:54 11/16/24 14:11 Range/Units Blood Gas Specimen Type Arterial Blood Gas Sample Site Right radial Blood Gas Patient Temperature 37.0 Arterial Blood Date Drawn [id number] Arterial Blood pH 7.346 L 7.350-7.450 Arterial Blood Partial Pressure CO2 46.9 35.0-48.0 mmHg Arterial Blood Partial Pressure O2 96.1 83.0-108.0 mmHg Arterial Blood HCO3 25.1 21.0-28.0 mmol/L Arterial Blood Oxygen Saturation 96.3 94.0-98.0 % Arterial Blood Base Excess -1.0 -2.0-3.0 mmol/L Arterial Blood Oxyhemoglobin 95.1 94.0-98.0 % Arterial Blood Carboxyhemoglobin 1.2 0.5-1.5 % Arterial Blood Methemoglobin 0.0 0.0-1.5 % Justice Test Yes Blood Gas Total Hemoglobin 13.40 L 13.5-17.5 g/dL Blood Gas Liter Flow 5.00 Blood Gas Modality Nasal cannula FiO2 % 40.0 White Blood Count 7.3 4.4-10.8 10^3/uL Red Blood Count 4.45 L 4.5-5.90 10^6/uL Hemoglobin 12.6 L 13.5-17.5 g/dL Hematocrit 39.1 L 41.0-53.0 % Mean Corpuscular Volume 87.8 80.0-100.0 fL Mean Corpuscular Hemoglobin 28.4 28.0-32.0 pg Mean Corpuscular Hemoglobin Concent 32.4 32.0-36.0 g/dL Red Cell Distribution Width 16.5 H 11.8-14.3 % Platelet Count 168 140-450 10^3/uL Mean Platelet Volume 8.7 6.9-10.8 fL Neutrophils (%) (Auto) 37.0-80.0 % Lymphocytes (%) (Auto) 10.0-50.0 % Monocytes (%) (Auto) 0.0-12.0 % Basophils (%) (Auto) 0.0-2.0 % Neutrophils # (Auto) 1.6-8.6 10 ^3/uL Lymphocytes # (Auto) 0.4-5.4 10 ^3/uL Monocytes # (Auto) 0-1.3 10 ^3/uL Differential Total Cells Counted 100.0 100 Neutrophils % (Manual) 91 H 37.0-80.0 Band Neutrophils % (Manual) 0 Lymphocytes % (Manual) 4 L 10.0-50.0 Monocytes % (Manual) 5 0-12 Eosinophils % (Manual) 0 0-7 Basophils % (Manual) 0 0.0-2.0 Metamyelocytes % (manual) 0 Myelocytes % (Manual) 0 Promyelocytes % (Manual) 0 Blast Cells % (Manual) 0 Reactive Lymphocytes 0 Platelet Estimate Adequate Sodium Level 139 136-145 mmol/L Potassium Level 3.8 3.5-5.1 mmol/L Chloride Level 106 98-107 mmol/L Carbon Dioxide Level 26 20-31 mmol/L Anion Gap 7 5-15 Blood Urea Nitrogen 37 H 9-23 mg/dL Creatinine 1.64 H 0.700-1.30 mg/dL Glomerular Filtration Rate Calc 45 >90 mL/min BUN/Creatinine Ratio 22.6 H 10.0-20.0 Serum Glucose 226 H 74-106 mg/dL Calcium Level 8.3 L 8.7-10.4 mg/dL Total Bilirubin 0.4 0.2-1.0 mg/dL Aspartate Amino Transferase (AST) 23 13-40 U/L Alanine Aminotransferase (ALT) 26 7-40 U/L Alkaline Phosphatase 106 46-116 U/L B-Type Natriuretic Peptide 645.21 0-100 pg/mL Total Protein 6.7 5.7-8.2 g/dL Albumin 3.4 3.2-4.8 g/dL POC Glucose 282 H 70-106 mg/dl Troponin I High Sensitivity 48 </=54 ng/L Test 11/16/24 05:20 11/16/24 04:10 11/16/24 03:42 11/16/24 03:38 Range/Units Lactic Acid Level 0.7 0.4-2.0 mmol/L Urine Color Yellow Yellow Urine Clarity Turbid H Clear Urine pH 5.5 5.0-9.0 Urine Specific Burr 1.022 1.001-1.035 Urine Protein 1+ H Negative Urine Ketones Negative Negative Urine Blood 2+ H Negative /uL Urine Nitrite Negative Negative Urine Bilirubin Negative Negative Urine Urobilinogen 2 H Negative mg/dL Urine Leukocyte Esterase 3+ Negative /uL Urine RBC 18 0 - 3 /hpf Urine WBC Clumps Present None Seen /hpf Urine Microscopic WBC 131 H 0-3 /HPF Urine Squamous Epithelial Cells Few <5 /hpf Urine Amorphous Crystals Few None Seen /hpf Urine Bacteria None seen None Seen /hpf Urine Glucose 4+ H Normal mg/dL Eosinophils (%) (Auto) 0.0 0.0-7.0 % Eosinophils # (Auto) 0 0-0.8 10 ^3/uL Basophils # (Auto) 0 0-0.2 10 ^3/uL Nucleated Red Blood Cells 0.0 % Hemoglobin A1c 6.7 H <5.7 % A1C Magnesium Level 2.5 1.6-2.6 mg/dL Triglycerides Level 47 < 150 mg/dL Cholesterol Level 74 < 200 mg/dL LDL Cholesterol 40 < 100 mg/dL HDL Cholesterol 30 L 40-59 mg/dL Thyroid Stimulating Hormone (TSH) 4.13 0.55-4.78 uIU/mL Influenza Type A Antigen Positive Negative Influenza Type B Antigen Negative Negative SARS-CoV-2 Antigen (Rapid) Negative NEGATIVE Microbiology Date/Time Source Procedure Growth Status 11/16/24 05:20 Blood Blood Culture - Preliminary NO GROWTH AFTER 24 HOURS OF INCUBATION. Resulted 11/16/24 04:10 Voided Urine Urine Culture - Preliminary Resulted Assessment Impression: Acute on chronic hypoxic respiratory failure Acute on chronic systolic CHF Pulmonary hypertension, RVSP 45-50 mmHg, WHO Class II Influenza type A Pneumonia, viral Morbid obesity, BMI 42.5 CKD Hx of nicotine dependence Plan: Supplemental oxygen Keep o2 saturation above 92% On 5 LPM via NC Continue abx Continue Tamiflu course Pulmonary hypertension, WHO Class II Management as per cardiology Diurese Monitor ins/outs Fluid restriction Monitor renal function Monitor electrolytes. Supplement as necessary. Cardiology recommendations appreciated Amio PO, Beta-noman, Therapeutic lovenox Accu-Cheks, ISS Diet and lifestyle modifications for weight reduction Morbid obesity - complicates all care DVT prophylaxis Prognosis: Poor given patient's multiple co-morbidities. Rest of plan per hospitalist and other consultants. Thank you Dr. Jacques, for allowing me to participate in this patient's care. Further recommendations will depend on the patient's clinical course. Please do not hesitate to contact me if you have any questions or concerns. This medical document was created using an electronic medical record system with [employer] computerized dictation system. Although these documentations are being carefully reviewed, there may still be some phonetic and typographical changes. The errors are purely typographical, due to imperfection on the software program, and do not reflect any compromise in the patient's medical care. Plan discussed with: Other (GAMALIEL Ramirez MD) ANN MARIE LUNA MD Nov 17, 2024 20:08
--- NOTE | 2024-11-17 22:29 | DVHPN2 ---
Progress Note - Dictate Date Seen: Nov 17, 2024 Medical Necessity Reason Pt with a Central, PICC or Fol: Yes The following are medically ne: Diaz Catheter Reason for diza catheter: Strict I&O Subjective Patient seen and examined at bedside. Remains on supplemental oxygen Overnight events reviewed. vital signs Vital Sign Date Time Temp Pulse Resp B/P (MAP) Pulse Ox O2 Delivery O2 Flow Rate FiO2 11/17/24 19:58 120 20 97 11/17/24 19:48 Nasal Cannula* 5 40 11/17/24 18:46 109/84 11/17/24 17:00 97.5 97.5 Total Intake and Output 11/16/24 11/16/24 11/17/24 15:00 23:00 07:00 Intake Total 266.67 ml 133.32 ml 700 ml Output Total 1450 ml 600 ml Balance 266.67 ml -1316.68 ml 100 ml medications Current Medications Medications Dose Ordered Sig/Vin Route Start Time Stop Time Status Last Admin Dose Admin Ipratropium [place] 0.5 mg Q4HPRN PRN NEB 11/16/24 09:45 11/17/24 12:57 0.5 MG Levalbuterol HCl 0.625 mg Q6HR NEB 11/16/24 12:00 11/17/24 19:47 0.625 MG Levofloxacin 50 ml @ 50 mls/hr DAILY IV 11/16/24 10:00 11/16/24 10:44 50 MLS/HR Ceftriaxone Sodium 50 ml @ 100 mls/hr DAILY@09 IV 11/16/24 09:48 11/17/24 11:14 100 MLS/HR Oseltamivir Phosphate 75 mg Q12HR PO 11/16/24 10:00 11/21/24 09:59 11/17/24 11:01 75 MG Aspirin 81 mg DAILY PO 11/17/24 10:00 11/17/24 10:59 81 MG Diagnostic Test (Pha) 1 strip ACHS 11/16/24 11:30 11/17/24 17:00 1 STRIP Insulin Human Regular ACHS SC 11/16/24 11:30 11/17/24 17:00 3 UNITS Dextrose 50 ml UD PRN IV 11/16/24 09:45 Sodium Chloride 10 ml Q8HR IV 11/16/24 14:00 11/17/24 14:00 10 ML Acetaminophen 650 mg Q6HP PRN PO 11/16/24 09:45 Carvedilol 3.125 mg Q12HR PO 11/16/24 22:00 11/17/24 11:01 3.125 MG Enoxaparin Sodium 100 mg Q12HR SC 11/16/24 22:00 11/17/24 10:59 100 MG Furosemide 80 mg BIDD IV 11/17/24 18:00 11/17/24 18:46 80 MG objective Gen.: Patient lying in bed in no apparent distress. On supplemental oxygen. Head: Normocephalic, atraumatic. Eyes: EOMI/PERRLA. Ears: Normal hearing. Normal anatomy. Neck/trachea: Trachea midline, supple. Nose: Normal external anatomy. Mouth: Moist mucous membranes. Chest: Decreased air entry bilaterally. No wheezing or rhonchi. Cardiovascular: Positive S1, positive S2. Regular rate and rhythm. Abdomen: Positive bowel sounds in all 4 quadrants. Soft, non-tender, non- distended. : Deferred. Rectal: Deferred. Skin: Warm, dry. Intact. Extremities: 2+ radial pulses bilaterally. No lower extremity edema. Neuro: Awake, alert, oriented x3. No gross motor or sensory deficits. Cranial nerves II through XII intact. Gait not assessed. laboratory and microbiology Laboratory Tests 11/17/24 07:15 Test 11/17/24 07:15 Range/Units Serum Glucose 226 H 74-106 mg/dL Assessment/Plan Impression: Acute on chronic hypoxic respiratory failure Acute on chronic systolic CHF Pulmonary hypertension, RVSP 45-50 mmHg, WHO Class II Influenza type A Pneumonia, viral Morbid obesity, BMI 42.5 CKD Hx of nicotine dependence Plan: Supplemental oxygen Keep o2 saturation above 92% On 5 LPM via [place] ABG reviewed, compensated. Continue bronchodilators Stop IV steroids Continue abx Blood cultures show no growth x24 hours Continue Tamiflu course Pulmonary hypertension, WHO Class II Management as per cardiology Wound care Diurese Monitor ins/outs Fluid restriction Monitor renal function - creatinine trending up Monitor electrolytes. Supplement as necessary. Cardiology recommendations appreciated On Coreg Therapeutic Lovenox Accu-Cheks, ISS Diet and lifestyle modifications for weight reduction Morbid obesity - complicates all care DVT prophylaxis Prognosis: Poor given patient's multiple co-morbidities. Rest of plan per hospitalist and other consultants. Thank you Dr. Jacques, for allowing me to participate in this patient's care. Further recommendations will depend on the patient's clinical course. Please do not hesitate to contact me if you have any questions or concerns. This medical document was created using an electronic medical record system with [employer] dictation system. Although these documentations are being carefully reviewed, there may still be some phonetic and typographical changes. The errors are purely typographical, due to imperfection on the software program, and do not reflect any compromise in the patient's medical care. Plan discussed with: Patient, Other (RN) ANN MARIE LUNA MD Nov 17, 2024 22:29
[2024-11-18] VITALS (14 sets, daily range): BP systolic 115–129; BP diastolic 60–84; PULSE 59–126; RESP 19–24; TEMP 97.9–98.9; O2SAT 91–99
[2024-11-18 08:11] LABS: Anion Gap 8 (5-15); Carbon Dioxide 27 mmol/L (20-31); Chloride 107 mmol/L (98-107); Potassium 3.6 mmol/L (3.5-5.1); Sodium 142 mmol/L (136-145)
[2024-11-18 08:13] LABS: Basophils # (auto) 0 10 ^3/uL (0-0.2); Basophils % (auto) 0.1 % (0.0-2.0); Eosinophils # (auto) 0 10 ^3/uL (0-0.8); Hematocrit 38.6 % (41.0-53.0); Hemoglobin 12.5 g/dL (13.5-17.5); Lymphocytes # (auto) 0.6 10 ^3/uL (0.4-5.4); Lymphocytes % (auto) 4.3 % (10.0-50.0); Mean Corpuscular Hemoglobin 28.6 pg (28.0-32.0); Mean Corpuscular Hgb Conc. 32.3 g/dL (32.0-36.0); Mean Corpuscular Volume 88.6 fL (80.0-100.0); Monocytes # (auto) 1.2 10 ^3/uL (0-1.3); Monocytes % (auto) 8.1 % (0.0-12.0); Neutrophils # (auto) 12.6 10 ^3/uL (1.6-8.6); Neutrophils % (auto) 87.5 % (37.0-80.0); Nucleated Red Blood Cells % 0.1 %; Platelet Count (auto) 185 10^3/uL (140-450); Red Blood Cells 4.36 10^6/uL (4.5-5.90); Red Cell Distribution Width 16.7 % (11.8-14.3); White Blood Cell 14.4 10^3/uL (4.4-10.8)
[2024-11-18 08:16] LABS: Calcium 8.3 mg/dL (8.7-10.4)
[2024-11-18 08:17] LABS: BUN/Creatinine Ratio 25.1 (10.0-20.0); Magnesium 2.4 mg/dL (1.6-2.6)
[2024-11-18 08:19] LABS: Phosphorus 4.4 mg/dL (2.4-5.1)
[2024-11-18 08:24] LABS: Blood Urea Nitrogen 44 mg/dL (9-23); Glucose 155 mg/dL (74-106)
--- NOTE | 2024-11-18 09:24 | DVHPN2 ---
Consult Progress Note Date Seen: Nov 18, 2024 Subjective Review of Systems: CVS:Normal, RESPIRATORY:Normal, NEURO:Normal Other Systems: No overnight cardiac events reported. Barber catheter pulled out by patient in an episode of agitation. Daughter told RN patient has a recent hx of methamphetamine use for which he quit a month ago Objective vital signs Vital Sign Date Time Temp Pulse Resp B/P (MAP) Pulse Ox O2 Delivery O2 Flow Rate FiO2 11/18/24 08:44 98.6 100 20 120/80 (93) 95 98.6 11/18/24 07:34 Nasal Cannula 5.0 11/18/24 07:34 40 Total Intake and Output 11/17/24 11/17/24 11/18/24 15:00 23:00 07:00 Intake Total 50 ml 1533.28 ml 550 ml Output Total 1200 ml 1400 ml Balance 50 ml 333.28 ml -850 ml medications Current Medications Medications Dose Ordered Sig/Vin Route Start Time Stop Time Status Last Admin Dose Admin Ipratropium [place] 0.5 mg Q4HPRN PRN NEB 11/16/24 09:45 11/18/24 00:42 0.5 MG Levalbuterol HCl 0.625 mg Q6HR NEB 11/16/24 12:00 11/18/24 07:34 0.625 MG Levofloxacin 50 ml @ 50 mls/hr DAILY IV 11/16/24 10:00 11/16/24 10:44 50 MLS/HR Ceftriaxone Sodium 50 ml @ 100 mls/hr DAILY@09 IV 11/16/24 09:48 11/17/24 11:14 100 MLS/HR Oseltamivir Phosphate 75 mg Q12HR PO 11/16/24 10:00 11/21/24 09:59 11/17/24 11:01 75 MG Aspirin 81 mg DAILY PO 11/17/24 10:00 11/17/24 10:59 81 MG Diagnostic Test (Pha) 1 strip ACHS 11/16/24 11:30 11/18/24 05:58 1 STRIP Insulin Human Regular ACHS SC 11/16/24 11:30 11/18/24 06:00 3 UNITS Dextrose 50 ml UD PRN IV 11/16/24 09:45 Sodium Chloride 10 ml Q8HR IV 11/16/24 14:00 11/18/24 05:42 10 ML Acetaminophen 650 mg Q6HP PRN PO 11/16/24 09:45 Carvedilol 3.125 mg Q12HR PO 11/16/24 22:00 11/17/24 11:01 3.125 MG Enoxaparin Sodium 100 mg Q12HR SC 11/16/24 22:00 11/17/24 10:59 100 MG Furosemide 80 mg BIDD IV 11/17/24 18:00 11/18/24 05:38 80 MG Examination: LUNGS:Abnormal (Bilateral crackles, improving), CVS:Abnormal (A- fib with RVR 120s-130s bpm. BLE edema +++ improving), NEURO:Normal laboratory and microbiology Laboratory Tests 11/18/24 07:34 Test 11/18/24 07:34 Range/Units Serum Glucose 155 H 74-106 mg/dL Problem List/Assessment/Plan Problem List/Assessment/Plan Sepsis with PNA/Influenza A Acute hypoxic respiratory failure secondary to above Acute on chronic decompensated HFrEF, NYHA Class IV Paroxysmal atrial fibrillation with rapid ventricular rate, Stage III, on amiodarone/Eliquis at home NSTEMI likely type II secondary to above Diabetes mellitus Type II Hypertension Hx of CVA Likely ERICA on CKD Recent hx of methamphetamine use, quit a month ago Obesity Plan/Recommendation (Dr. Thomas) * Echocardiogram revealed EF 25% * There is global hypokinesis and flattening of the intraventricular septum during diastole suggestive of right-sided volume overload. Ofuqrlja-rl-puxnim left ventricular hypertrophy most prominent in the septum. Severely dilated right ventricle with moderately decreased systolic function. Severely dilated right atrium and moderately dilated left atrium. Eohhwjvh-dl-sptark tricuspid regurgitation. PA systolic pressure is estimated at 45-50 mmHg. Small circumferential pericardial effusion. * Preload and afterload reduction as tolerated * GDMT for CHF as hemodynamics and renal function permits * Hold Eliquis therapy. Continue therapeutic Lovenox * [id number] Score 4 points. HAS-BLED Score 4 points * Antiarrhythmic, continue amiodarone drip per pharmacy protocol * Rate control, carvedilol and digoxin therapy including loading dose * ABX therapy per primary care team * Monitor ECG changes closely and notify * Consider Nephrology consultation Thank you for allowing us to participate in this patient's care. Please call if you have any questions or concerns. This medical document was created using an electronic medical record system with voice recognition software and computerized dictation system. Although this document has been carefully reviewed, there might still be some phonetic and typographical errors. Occasional wrong-word or ``sound-alike substitutions may have occurred due to the inherent limitations of voice recognition software. These areas are purely typographical due to imperfections of the software programs and do not reflect any compromise in the patient's medical care. Please read the chart carefully and recognize, using context, where these substitutions have occurred. Plan discussed with: Patient, Other Date of Service: Nov 18, 2024 Billing Provider: KATELYN FUCHS Cardiology Common Codes: [id number] HOSP CARE(High KATELYN FUCHS Nov 18, 2024 09:24
[2024-11-18] MEDS: DIGOXIN (250MCG/ML) 2 ML AMPULE IV ONE (10:13)
[2024-11-18] MEDS: DIGOXIN 0.125 MG TAB PO SCH (11:30)
--- NOTE | 2024-11-18 16:04 | DVHPN2 ---
Assessment/Plan Assessment/Plan Progress note 68M with HFrEF, afib on eliquis, morbid obesity, admitted for flu a PNA seen by me today during rounds improving, removed diaz Physical exam Alert oriented x3 Morbidly obese Using respiratory muscle B/l crackles s1 s2 tachy JVD mandible Abdomen distended, fluid shift LE edema b/l, chronic venous changes Labs imaging and echo reviewed Assessment and plan acute on chronic hypoxic respiratory failure 2/2 acute on chronic systolic heart failure likely right heart failure possible pulm HTN Flu A PNA Morbid obesity Afib with RVR on eliquis DM old stroke CKD c/w o2 supp, bipap at night tamiflu avoid steroid for now 2/2 flu maintain spo2> 94% amio, full AC rate control, started on dig and amio iss fsx4 basal insulin trend cr c/w diuresis, goal -2-3 L cardio pulm consult appreciated dvt ppx on full ac diet cardiac code status full code d/w patient re intubation, pt okay medical decision maker dwain (daughter) [phone] Plan discussed with: Patient My Orders Orders - LEYLA BLANCO MD Procedure Category Date Status Time Bipap/Cpap For Sleep RT 11/17/24 Logged Apnea 16:44 Cleanse Wound With DA 11/17/24 In Process Wound Clean 15:44 * Dietary Consult CONS 11/17/24 Transmitted 15:44 Date of Service: Nov 18, 2024 Billing Provider: LEYLA BLANCO MD Common Visit Codes: [id number] INP/OBS CARE(HIGH) LEYLA BLANCO MD Nov 18, 2024 16:04
--- NOTE | 2024-11-18 22:42 | DVHPN2 ---
Progress Note - Dictate Date Seen: Nov 18, 2024 Medical Necessity Reason Pt with a Central, PICC or Fol: Yes The following are medically ne: Diaz Catheter Reason for diaz catheter: Strict I&O Subjective Patient seen and examined at bedside. Breathing comfortably on room air Overnight events reviewed. vital signs Vital Sign Date Time Temp Pulse Resp B/P (MAP) Pulse Ox O2 Delivery O2 Flow Rate FiO2 11/18/24 21:00 97.9 95 20 115/60 (78) 93 97.9 11/18/24 19:20 Nasal Cannula 5.0 11/18/24 19:20 40 Total Intake and Output 11/17/24 11/17/24 11/18/24 15:00 23:00 07:00 Intake Total 50 ml 1533.28 ml 550 ml Output Total 1200 ml 1400 ml Balance 50 ml 333.28 ml -850 ml medications Current Medications Medications Dose Ordered Sig/Vin Route Start Time Stop Time Status Last Admin Dose Admin Ipratropium [place] 0.5 mg Q4HPRN PRN NEB 11/16/24 09:45 11/18/24 19:20 0.5 MG Levalbuterol HCl 0.625 mg Q6HR NEB 11/16/24 12:00 11/18/24 19:20 0.625 MG Levofloxacin 50 ml @ 50 mls/hr DAILY IV 11/16/24 10:00 11/16/24 10:44 50 MLS/HR Ceftriaxone Sodium 50 ml @ 100 mls/hr DAILY@09 IV 11/16/24 09:48 11/18/24 10:13 100 MLS/HR Oseltamivir Phosphate 75 mg Q12HR PO 11/16/24 10:00 11/21/24 09:59 11/18/24 09:23 75 MG Aspirin 81 mg DAILY PO 11/17/24 10:00 11/18/24 09:22 81 MG Diagnostic Test (Pha) 1 strip ACHS 11/16/24 11:30 11/18/24 17:00 1 STRIP Insulin Human Regular ACHS SC 11/16/24 11:30 11/18/24 17:00 2 UNITS Dextrose 50 ml UD PRN IV 11/16/24 09:45 Sodium Chloride 10 ml Q8HR IV 11/16/24 14:00 11/18/24 14:00 10 ML Acetaminophen 650 mg Q6HP PRN PO 11/16/24 09:45 Carvedilol 3.125 mg Q12HR PO 11/16/24 22:00 11/18/24 09:23 3.125 MG Enoxaparin Sodium 100 mg Q12HR SC 11/16/24 22:00 11/18/24 09:26 100 MG Furosemide 80 mg BIDD IV 11/17/24 18:00 11/18/24 17:55 80 MG Digoxin 0.125 mg MWF PO 11/18/24 10:00 11/18/24 11:30 0.125 MG Lorazepam 0.5 mg Q6HP PRN IV 11/18/24 09:30 objective Gen.: Patient lying in bed in no apparent distress. On room air. Head: Normocephalic, atraumatic. Eyes: EOMI/PERRLA. Ears: Normal hearing. Normal anatomy. Neck/trachea: Trachea midline, supple. Nose: Normal external anatomy. Mouth: Moist mucous membranes. Chest: Decreased air entry bilaterally. No wheezing or rhonchi. Cardiovascular: Positive S1, positive S2. Regular rate and rhythm. Abdomen: Positive bowel sounds in all 4 quadrants. Soft, non-tender, non- distended. : Deferred. Rectal: Deferred. Skin: Warm, dry. Intact. Extremities: 2+ radial pulses bilaterally. No lower extremity edema. Neuro: Awake, alert, oriented x3. No gross motor or sensory deficits. Cranial nerves II through XII intact. Gait not assessed. laboratory and microbiology Laboratory Tests 11/18/24 07:34 Test 11/18/24 07:34 Range/Units Serum Glucose 155 H 74-106 mg/dL Assessment/Plan Impression: Acute on chronic hypoxic respiratory failure Acute on chronic systolic CHF Pulmonary hypertension, RVSP 45-50 mmHg, WHO Class II Influenza type A Pneumonia, viral Morbid obesity, BMI 42.5 CKD Hx of nicotine dependence Events: Tapered off supplemental oxygen On room air Tamiflu course Continue bronchodilators Continue antibiotics Incentive spirometry Clinimix for nutritional support Monitor renal function Monitor electrolytes. Supplement as necessary. Potassium supplementation Labs and imaging reviewed. Rest of plan as noted below. Plan: Supplemental oxygen PRN Keep o2 saturation above 92% Continue bronchodilators Continue abx Blood and urine cultures show no growth after 48 hours Continue Tamiflu course Pulmonary hypertension, WHO Class II Management as per cardiology Wound care Diurese as tolerated w/ Lasix Monitor ins/outs Fluid restriction Monitor renal function - creatinine 1.75 Monitor electrolytes. Supplement as necessary. Cardiology recommendations appreciated On Coreg Therapeutic Lovenox Accu-Cheks, ISS Diet and lifestyle modifications for weight reduction Morbid obesity - complicates all care DVT prophylaxis Prognosis: Guarded given patient's multiple co-morbidities. Rest of plan per hospitalist and other consultants. Thank you Dr. Jacques, for allowing me to participate in this patient's care. Further recommendations will depend on the patient's clinical course. Please do not hesitate to contact me if you have any questions or concerns. This medical document was created using an electronic medical record system with [employer] computerized dictation system. Although these documentations are being carefully reviewed, there may still be some phonetic and typographical changes. The errors are purely typographical, due to imperfection on the software program, and do not reflect any compromise in the patient's medical care. Plan discussed with: Patient, Other (GAMALIEL Jason) ANN MARIE LUNA MD Nov 18, 2024 22:42
[2024-11-19] VITALS (16 sets, daily range): BP systolic 134–140; BP diastolic 62–83; PULSE 69–125; RESP 16–20; TEMP 97.5–97.9; O2SAT 90–100
[2024-11-19 09:33] LABS: Chloride 107 mmol/L (98-107); Potassium 3.6 mmol/L (3.5-5.1); Sodium 144 mmol/L (136-145)
[2024-11-19 09:34] LABS: Anion Gap 7 (5-15); Carbon Dioxide 30 mmol/L (20-31)
[2024-11-19 09:37] LABS: Basophils # (auto) 0 10 ^3/uL (0-0.2); Basophils % (auto) 0.1 % (0.0-2.0); Calcium 8.4 mg/dL (8.7-10.4); Eosinophils # (auto) 0 10 ^3/uL (0-0.8); Eosinophils % (auto) 0.2 % (0.0-7.0); Hematocrit 40.8 % (41.0-53.0); Hemoglobin 12.8 g/dL (13.5-17.5); Lymphocytes # (auto) 0.8 10 ^3/uL (0.4-5.4); Lymphocytes % (auto) 9.9 % (10.0-50.0); Mean Corpuscular Hemoglobin 28.1 pg (28.0-32.0); Mean Corpuscular Hgb Conc. 31.3 g/dL (32.0-36.0); Mean Corpuscular Volume 89.7 fL (80.0-100.0); Monocytes # (auto) 0.8 10 ^3/uL (0-1.3); Monocytes % (auto) 10.8 % (0.0-12.0); Neutrophils # (auto) 6.1 10 ^3/uL (1.6-8.6); Nucleated Red Blood Cells % 0.1 %; Platelet Count (auto) 187 10^3/uL (140-450); Red Blood Cells 4.55 10^6/uL (4.5-5.90); Red Cell Distribution Width 16.9 % (11.8-14.3); White Blood Cell 7.7 10^3/uL (4.4-10.8)
[2024-11-19 09:40] LABS: BUN/Creatinine Ratio 26.2 (10.0-20.0); Magnesium 2.3 mg/dL (1.6-2.6)
[2024-11-19 09:42] LABS: Phosphorus 2.6 mg/dL (2.4-5.1)
[2024-11-19 09:44] LABS: Blood Urea Nitrogen 38 mg/dL (9-23); Glucose 160 mg/dL (74-106)
--- NOTE | 2024-11-19 10:15 | DVHPN2 ---
Consult Progress Note Subjective Other Systems: The patient remains in atrial fibrillation, now with controlled rate Objective vital signs Vital Sign Date Time Temp Pulse Resp B/P (MAP) Pulse Ox O2 Delivery O2 Flow Rate FiO2 11/19/24 09:00 97.9 77 20 134/76 (95) 94 97.9 11/19/24 08:00 Nasal Cannula* 2 28 Total Intake and Output 11/18/24 11/18/24 11/19/24 15:00 23:00 07:00 Intake Total 50 ml 450 ml 200 ml Output Total 2100 ml 300 ml Balance 50 ml -1650 ml -100 ml medications Current Medications Medications Dose Ordered Sig/Vin Route Start Time Stop Time Status Last Admin Dose Admin Ipratropium [place] 0.5 mg Q4HPRN PRN NEB 11/16/24 09:45 11/19/24 00:29 0.5 MG Levalbuterol HCl 0.625 mg Q6HR NEB 11/16/24 12:00 11/19/24 07:52 0.625 MG Levofloxacin 50 ml @ 50 mls/hr DAILY IV 11/16/24 10:00 11/16/24 10:44 50 MLS/HR Ceftriaxone Sodium 50 ml @ 100 mls/hr DAILY@09 IV 11/16/24 09:48 11/19/24 09:47 100 MLS/HR Oseltamivir Phosphate 75 mg Q12HR PO 11/16/24 10:00 11/21/24 09:59 11/19/24 08:33 75 MG Aspirin 81 mg DAILY PO 11/17/24 10:00 11/19/24 08:33 81 MG Diagnostic Test (Pha) 1 strip ACHS 11/16/24 11:30 11/19/24 00:07 1 STRIP Insulin Human Regular ACHS SC 11/16/24 11:30 11/19/24 00:09 3 UNITS Dextrose 50 ml UD PRN IV 11/16/24 09:45 Sodium Chloride 10 ml Q8HR IV 11/16/24 14:00 11/18/24 23:14 10 ML Acetaminophen 650 mg Q6HP PRN PO 11/16/24 09:45 Carvedilol 3.125 mg Q12HR PO 11/16/24 22:00 11/19/24 08:33 3.125 MG Enoxaparin Sodium 100 mg Q12HR SC 11/16/24 22:00 11/19/24 08:35 100 MG Furosemide 80 mg BIDD IV 11/17/24 18:00 11/18/24 17:55 80 MG Digoxin 0.125 mg MWF PO 11/18/24 10:00 11/18/24 11:30 0.125 MG Lorazepam 0.5 mg Q6HP PRN IV 11/18/24 09:30 Examination: GENERAL:Normal, LUNGS:Normal, CVS:Normal, NEURO:Normal laboratory and microbiology Laboratory Tests 11/19/24 08:40 Test 11/19/24 08:40 Range/Units Serum Glucose 160 H 74-106 mg/dL Problem List/Assessment/Plan Problem List/Assessment/Plan Sepsis with PNA/Influenza A Acute hypoxic respiratory failure secondary to above Acute on chronic decompensated HFrEF, NYHA Class IV Paroxysmal atrial fibrillation with rapid ventricular rate, Stage III, on amiodarone/Eliquis at home NSTEMI likely type II secondary to above Hypertension Diabetes mellitus Type II Hx of CVA Likely ERICA on CKD Recent hx of methamphetamine use, quit a month ago Obesity Plan/Recommendation (Dr. Lopez) * Echocardiogram revealed EF 25% * There is global hypokinesis and flattening of the intraventricular septum during diastole suggestive of right-sided volume overload. [id number] left ventricular hypertrophy most prominent in the septum. Severely dilated right ventricle with moderately decreased systolic function. Severely dilated right atrium and moderately dilated left atrium. [id number] tricuspid regurgitation. PA systolic pressure is estimated at 45-50 mmHg. Small circumferential pericardial effusion. * Preload and afterload reduction as tolerated * GDMT for CHF as hemodynamics and renal function permits * Hold Eliquis therapy. Continue therapeutic Lovenox * [id number] Score 4 points. HAS-BLED Score 4 points * Antiarrhythmic, transitioned to oral amiodarone * Rate control, carvedilol and digoxin therapy (EOD given renal function) * ABX therapy per primary care team * Monitor ECG changes closely and notify * Consider Nephrology consultation Case discussed with . Thank you for allowing us to participate in this patient's care. Please call if you have any questions or concerns. This medical document was created using an electronic medical record system with voice recognition software and computerized dictation system. Although this document has been carefully reviewed, there might still be some phonetic and typographical errors. Occasional wrong-word or ``sound-alike substitutions may have occurred due to the inherent limitations of voice recognition software. These areas are purely typographical due to imperfections of the software programs and do not reflect any compromise in the patient's medical care. Please read the chart carefully and recognize, using context, where these substitutions have occurred. Plan discussed with: Patient Date of Service: Nov 19, 2024 Billing Provider: JENNIFER LOPEZ MD Common Visit Codes: [id number] INP/OBS CARE(HIGH) MIKA IVEY SPA THERAPIST Nov 19, 2024 10:15
[2024-11-19] MEDS ORDERED: ALBUTEROL SULF 2.5 MG/0.5ML(0.5%) NEB SOLN NEB PRN (10:45)
[2024-11-19] MEDS: methylPREDNISolone SOD SUCC 40 MG/ML VL IV SCH (11:17)
[2024-11-19] MEDS: LORazepam 2MG/ML-1ML VIAL IV PRN ×2 (13:18→23:19)
--- NOTE | 2024-11-19 13:41 | DVHPN2 ---
Changes from previous H/P or p: No Changes Eyes: No Pain, No Vision change, No Conjunctivae inflammation, No Eyelid inflammation, No Other, No Redness ENT: No Ear pain, No Ear discharge, No Nose pain, No Nose discharge, No Nose congestion, No Mouth pain, No Mouth swelling, No Throat pain, No Throat swelling, No Other Cardiovascular: No Chest Pain, No Palpitations, No Orthopnea, No Paroxysmal Noc. Dyspnea, No Edema, No Lt Headedness, No Other Respiratory: Cough (Productive); No Dry; Shortness of breath, SOB with excertion; No Wheezing, No Hemoptysis, No Pleuritic Pain, No Sputum; Other (SOB at rest) Gastrointestinal: No Nausea, No Vomiting, No Abdominal Pain, No Diarrhea, No Constipation, No Melena, No Hematochezia, No Other Genitourinary: No Dysuria, No Frequency, No Incontinence, No Hematuria, No Retention, No Other Musculoskeletal: No other, No neck pain, No shoulder pain, No arm pain, No back pain, No hand pain, No leg pain, No foot pain Skin: No Rash, No Lesions, No Jaundice, No Bruising, No Other Objective Vitals Vital Signs Date Time Temp Pulse Resp B/P (MAP) Pulse Ox O2 Delivery O2 Flow Rate FiO2 11/19/24 12:42 97.8 79 20 136/76 (96) 96 97.8 11/19/24 12:18 Nasal Cannula* 2 28 Intake/Output Intake and Output 11/19/24 07:00 Intake Total 700 ml Output Total 2400 ml Balance -1700 ml Intake Oral 650 ml IV Total 50 ml Output Urine Total 2400 ml Medications Current Medications Medications Dose Ordered Sig/Vin Route Start Time Stop Time Status Last Admin Dose Admin Ipratropium [place] 0.5 mg Q4HPRN PRN NEB 11/16/24 09:45 11/19/24 00:29 0.5 MG Levalbuterol HCl 0.625 mg Q6HR NEB 11/16/24 12:00 11/19/24 12:18 0.625 MG Levofloxacin 50 ml @ 50 mls/hr DAILY IV 11/16/24 10:00 11/16/24 10:44 50 MLS/HR Ceftriaxone Sodium 50 ml @ 100 mls/hr DAILY@09 IV 11/16/24 09:48 11/19/24 09:47 100 MLS/HR Oseltamivir Phosphate 75 mg Q12HR PO 11/16/24 10:00 11/21/24 09:59 11/19/24 08:33 75 MG Aspirin 81 mg DAILY PO 11/17/24 10:00 11/19/24 08:33 81 MG Diagnostic Test (Pha) 1 strip ACHS 11/16/24 11:30 11/19/24 11:37 1 STRIP Insulin Human Regular ACHS SC 11/16/24 11:30 11/19/24 11:37 2 UNITS Dextrose 50 ml UD PRN IV 11/16/24 09:45 Sodium Chloride 10 ml Q8HR IV 11/16/24 14:00 11/19/24 13:11 10 ML Acetaminophen 650 mg Q6HP PRN PO 11/16/24 09:45 Carvedilol 3.125 mg Q12HR PO 11/16/24 22:00 11/19/24 08:33 3.125 MG Enoxaparin Sodium 100 mg Q12HR SC 11/16/24 22:00 11/19/24 08:35 100 MG Furosemide 80 mg BIDD IV 11/17/24 18:00 11/18/24 17:55 80 MG Digoxin 0.125 mg MWF PO 11/18/24 10:00 11/18/24 11:30 0.125 MG Lorazepam 0.5 mg Q6HP PRN IV 11/18/24 09:30 11/19/24 13:18 0.5 MG Methylprednisolone Sodium Succinate 40 mg Q8HR IV 11/19/24 11:30 11/19/24 11:17 40 MG Albuterol 1.25 mg Q4HPRN PRN NEB 11/19/24 10:45 Budesonide 0.5 mg Q12HP NEB 11/19/24 10:45 Laboratory Results Laboratory Tests 11/19/24 08:40 Chemistry Test 11/19/24 08:40 Calcium Level 8.4 mg/dL (8.7-10.4) L Magnesium Level 2.3 mg/dL (1.6-2.6) Phosphorus Level 2.6 mg/dL (2.4-5.1) Urinalysis Test 11/16/24 04:10 Urine Color Yellow (Yellow) Urine Clarity Turbid (Clear) H Urine pH 5.5 (5.0-9.0) Urine Specific [place] 1.022 (1.001-1.035) Urine Protein 1+ (Negative) H Urine Ketones Negative (Negative) Urine Blood 2+ /uL (Negative) H Urine Nitrite Negative (Negative) Urine Bilirubin Negative (Negative) Urine Urobilinogen 2 mg/dL (Negative) H Urine Leukocyte Esterase 3+ /uL (Negative) Urine RBC 18 /hpf (0 - 3) Urine WBC Clumps Present /hpf (None Seen) Urine Microscopic WBC 131 /HPF (0-3) H Urine Squamous Epithelial Cells Few /hpf (<5) Urine Amorphous Crystals Few /hpf (None Seen) Urine Bacteria None seen /hpf (None Seen) Urine Glucose 4+ mg/dL (Normal) H Microbiology Microbiology Date/Time Source Procedure Growth Status 11/16/24 05:20 Blood Blood Culture - Preliminary NO GROWTH AFTER 72 HOURS OF INCUBATION. Resulted 11/16/24 04:10 Voided Urine Urine Culture - Final Complete Assessment/Plan Assessment/Plan Progress note 68M with HFrEF, afib on eliquis, morbid obesity, admitted for flu a PNA seen by me today during rounds patient confused on and off. amio switched to oral, continued with diuresis. Physical exam Alert oriented x3 Morbidly obese Using respiratory muscle B/l crackles, improved s1 s2 tachy JVD mandible Abdomen distended, fluid shift LE edema b/l, chronic venous changes Labs imaging and echo reviewed Assessment and plan acute on chronic hypoxic respiratory failure 2/2 acute on chronic systolic heart failure likely right heart failure possible pulm HTN Flu A PNA Morbid obesity Afib with RVR on eliquis DM old stroke CKD c/w o2 supp, bipap at night tamiflu avoid steroid for now 2/2 flu maintain spo2> 94% amio to oral, full AC rate control, started on dig and amio iss fsx4 basal insulin trend cr c/w diuresis, goal -2-3 L cardio pulm consult appreciated dvt ppx on full ac diet cardiac code status full code d/w patient re intubation, pt okay medical decision maker dwain (daughter) [phone] Plan discussed with: Patient Date of Service: Nov 19, 2024 Billing Provider: LEYLA BLANCO MD Common Visit Codes: [id number] INP/OBS CARE(HIGH) LEYLA BLANCO MD Nov 19, 2024 13:41
[2024-11-19] MEDS: BUDESONIDE (INHALATION) 0.5 MG/2 ML NEB NEB SCH (13:46)
[2024-11-19] MEDS: AMIODARONE HCL 200 MG TAB PO ONE (15:14)
[2024-11-19] MEDS ORDERED: LORazepam 2MG/ML-1ML VIAL IV PRN (15:15)
[2024-11-19] MEDS: LORazepam 2MG/ML-1ML VIAL IV ONE (15:21)
--- NOTE | 2024-11-19 23:27 | DVHPN2 ---
Progress Note - Dictate Date Seen: Nov 19, 2024 Medical Necessity Reason Pt with a Central, PICC or Fol: Yes The following are medically ne: Diaz Catheter Reason for diaz catheter: Strict I&O Subjective Patient seen and examined at bedside. Breathing comfortably on room air Overnight events reviewed. vital signs Vital Sign Date Time Temp Pulse Resp B/P (MAP) Pulse Ox O2 Delivery O2 Flow Rate FiO2 11/19/24 23:09 107 18 99 11/19/24 23:00 Nasal Cannula* 2 28 11/19/24 21:45 137/62 11/19/24 21:00 97.5 97.5 Total Intake and Output 11/18/24 11/18/24 11/19/24 15:00 23:00 07:00 Intake Total 50 ml 450 ml 283.3 ml Output Total 2100 ml 300 ml Balance 50 ml -1650 ml -16.7 ml medications Current Medications Medications Dose Ordered Sig/Vin Route Start Time Stop Time Status Last Admin Dose Admin Ipratropium [place] 0.5 mg Q4HPRN PRN NEB 11/16/24 09:45 11/19/24 00:29 0.5 MG Levalbuterol HCl 0.625 mg Q6HR NEB 11/16/24 12:00 11/19/24 22:59 0.625 MG Levofloxacin 50 ml @ 50 mls/hr DAILY IV 11/16/24 10:00 11/16/24 10:44 50 MLS/HR Ceftriaxone Sodium 50 ml @ 100 mls/hr DAILY@09 IV 11/16/24 09:48 11/19/24 09:47 100 MLS/HR Oseltamivir Phosphate 75 mg Q12HR PO 11/16/24 10:00 11/21/24 09:59 11/19/24 21:45 75 MG Aspirin 81 mg DAILY PO 11/17/24 10:00 11/19/24 08:33 81 MG Diagnostic Test (Pha) 1 strip ACHS 11/16/24 11:30 11/19/24 21:46 1 STRIP Insulin Human Regular ACHS SC 11/16/24 11:30 11/19/24 21:54 8 UNITS Dextrose 50 ml UD PRN IV 11/16/24 09:45 Sodium Chloride 10 ml Q8HR IV 11/16/24 14:00 11/19/24 22:00 10 ML Acetaminophen 650 mg Q6HP PRN PO 11/16/24 09:45 Carvedilol 3.125 mg Q12HR PO 11/16/24 22:00 11/19/24 21:45 3.125 MG Enoxaparin Sodium 100 mg Q12HR SC 11/16/24 22:00 11/19/24 21:46 100 MG Furosemide 80 mg BIDD IV 11/17/24 18:00 11/19/24 18:17 80 MG Digoxin 0.125 mg MWF PO 11/18/24 10:00 11/18/24 11:30 0.125 MG Methylprednisolone Sodium Succinate 40 mg Q8HR IV 11/19/24 11:30 11/19/24 21:46 40 MG Albuterol 1.25 mg Q4HPRN PRN NEB 11/19/24 10:45 Budesonide 0.5 mg Q12HP NEB 11/19/24 10:45 11/19/24 23:00 0.5 MG Amiodarone HCl 200 mg DAILY PO 11/20/24 10:00 Lorazepam 1 mg Q6HP PRN IV 11/19/24 15:15 UNV Lorazepam 0.5 mg Q6HP PRN IV 11/19/24 22:50 11/19/24 23:19 0.5 MG objective Gen.: Patient lying in bed in no apparent distress. On room air. Head: Normocephalic, atraumatic. Eyes: EOMI/PERRLA. Ears: Normal hearing. Normal anatomy. Neck/trachea: Trachea midline, supple. Nose: Normal external anatomy. Mouth: Moist mucous membranes. Chest: Decreased air entry bilaterally. No wheezing or rhonchi. Cardiovascular: Positive S1, positive S2. Regular rate and rhythm. Abdomen: Positive bowel sounds in all 4 quadrants. Soft, non-tender, non- distended. : Deferred. Rectal: Deferred. Skin: Warm, dry. Intact. Extremities: 2+ radial pulses bilaterally. No lower extremity edema. Neuro: Awake, alert, oriented x3. No gross motor or sensory deficits. Cranial nerves II through XII intact. Gait not assessed. laboratory and microbiology Laboratory Tests 11/19/24 08:40 Test 11/19/24 08:40 Range/Units Serum Glucose 160 H 74-106 mg/dL Assessment/Plan Impression: Acute on chronic hypoxic respiratory failure Acute on chronic systolic CHF Pulmonary hypertension, RVSP 45-50 mmHg, WHO Class II Influenza type A Pneumonia, viral Morbid obesity, BMI 42.5 CKD Hx of nicotine dependence Events: On room air Supplemental oxygen PRN Wheezing - started on steroids Tamiflu course Continue bronchodilators/Pulmicort Continue antibiotics Incentive spirometry Clinimix for nutritional support Monitor renal function Monitor electrolytes. Supplement as necessary. Labs and imaging reviewed. Rest of plan as noted below. Plan: Supplemental oxygen PRN Keep o2 saturation above 92% Continue bronchodilators Continue abx Blood and urine cultures show no growth after 48 hours Continue Tamiflu course Pulmonary hypertension, WHO Class II Management as per cardiology Wound care Diurese as tolerated w/ Lasix Monitor ins/outs Fluid restriction Monitor renal function Monitor electrolytes. Supplement as necessary. Cardiology recommendations appreciated On Coreg Therapeutic Lovenox Accu-Cheks, ISS Diet and lifestyle modifications for weight reduction Morbid obesity - complicates all care DVT prophylaxis Prognosis: Guarded given patient's multiple co-morbidities. Rest of plan per hospitalist and other consultants. Thank you Dr. Jacques, for allowing me to participate in this patient's care. Further recommendations will depend on the patient's clinical course. Please do not hesitate to contact me if you have any questions or concerns. This medical document was created using an electronic medical record system with [employer] computerized dictation system. Although these documentations are being carefully reviewed, there may still be some phonetic and typographical changes. The errors are purely typographical, due to imperfection on the software program, and do not reflect any compromise in the patient's medical care. Plan discussed with: Patient, Other (RN Ty) ANN MARIE LUNA MD Nov 19, 2024 23:27
[2024-11-20] VITALS (19 sets, daily range): BP systolic 105–141; BP diastolic 62–81; PULSE 50–134; RESP 16–20; TEMP 97.3–98.7; O2SAT 86–100
[2024-11-20 06:03] LABS: Basophils # (auto) 0 10 ^3/uL (0-0.2); Basophils % (auto) 0.2 % (0.0-2.0); Eosinophils # (auto) 0 10 ^3/uL (0-0.8); Hemoglobin 12.9 g/dL (13.5-17.5); Lymphocytes # (auto) 0.3 10 ^3/uL (0.4-5.4); Lymphocytes % (auto) 5.3 % (10.0-50.0); Mean Corpuscular Hgb Conc. 31.6 g/dL (32.0-36.0); Mean Corpuscular Volume 88.9 fL (80.0-100.0); Monocytes # (auto) 0.1 10 ^3/uL (0-1.3); Monocytes % (auto) 2.5 % (0.0-12.0); Neutrophils # (auto) 4.6 10 ^3/uL (1.6-8.6); Nucleated Red Blood Cells % 0.1 %; Platelet Count (auto) 171 10^3/uL (140-450); Red Blood Cells 4.61 10^6/uL (4.5-5.90)
[2024-11-20 06:14] LABS: Anion Gap 4 (5-15); Chloride 107 mmol/L (98-107); Potassium 4.2 mmol/L (3.5-5.1); Sodium 144 mmol/L (136-145)
[2024-11-20 06:21] LABS: BUN/Creatinine Ratio 29.8 (10.0-20.0); Magnesium 2.4 mg/dL (1.6-2.6)
[2024-11-20 06:23] LABS: Blood Urea Nitrogen 36 mg/dL (9-23); Calcium 8.6 mg/dL (8.7-10.4); Carbon Dioxide 33 mmol/L (20-31); Glucose 270 mg/dL (74-106); Phosphorus 4.2 mg/dL (2.4-5.1)
--- NOTE | 2024-11-20 09:10 | ECG ---
[facility] Test Date: 2024-11-19 Test Time: 13:53:17 Pat Name: TREVIN SOTELO Department: Room: 0236T Gender: M Road Marker: CRYSTAL : 1955 Requested By: LEYLA BLANCO Order Number: [id number] Reading MD: Measurements Intervals [place] Rate: 104 P: 0 AK: 0 QRS: -166 QRSD: 186 T: 23 QT: 447 QTc: 588 Interpretive Statements Atrial flutter Ventricular premature complex Right bundle branch block Artifact in lead(s) I,III,aVR,aVL,aVF,V4,V5 Please click the below link to view image of tracing.
--- NOTE | 2024-11-20 09:39 | DVHPN2 ---
Consult Progress Note Subjective Other Systems: At time of assessment, the patient was off cardiac monitor. Patient was refusing to be placed back on continuous telemetry. Objective vital signs Vital Sign Date Time Temp Pulse Resp B/P (MAP) Pulse Ox O2 Delivery O2 Flow Rate FiO2 11/20/24 09:00 98.6 103 20 141/81 (101) 95 98.6 11/20/24 06:31 Nasal Cannula 3.0 11/20/24 06:31 32 Total Intake and Output 11/19/24 11/19/24 11/20/24 15:00 23:00 07:00 Intake Total 513 ml 250 ml 470 ml Output Total 600 ml 500 ml Balance -87 ml -250 ml 470 ml medications Current Medications Medications Dose Ordered Sig/Vin Route Start Time Stop Time Status Last Admin Dose Admin Ipratropium [place] 0.5 mg Q4HPRN PRN NEB 11/16/24 09:45 11/19/24 00:29 0.5 MG Levalbuterol HCl 0.625 mg Q6HR NEB 11/16/24 12:00 11/20/24 06:30 0.625 MG Levofloxacin 50 ml @ 50 mls/hr DAILY IV 11/16/24 10:00 11/16/24 10:44 50 MLS/HR Ceftriaxone Sodium 50 ml @ 100 mls/hr DAILY@09 IV 11/16/24 09:48 11/19/24 09:47 100 MLS/HR Oseltamivir Phosphate 75 mg Q12HR PO 11/16/24 10:00 11/21/24 09:59 11/19/24 21:45 75 MG Aspirin 81 mg DAILY PO 11/17/24 10:00 11/19/24 08:33 81 MG Diagnostic Test (Pha) 1 strip ACHS 11/16/24 11:30 11/20/24 06:03 1 STRIP Insulin Human Regular ACHS SC 11/16/24 11:30 11/20/24 06:04 6 UNITS Dextrose 50 ml UD PRN IV 11/16/24 09:45 Sodium Chloride 10 ml Q8HR IV 11/16/24 14:00 11/20/24 06:03 10 ML Acetaminophen 650 mg Q6HP PRN PO 11/16/24 09:45 Carvedilol 3.125 mg Q12HR PO 11/16/24 22:00 11/19/24 21:45 3.125 MG Enoxaparin Sodium 100 mg Q12HR SC 11/16/24 22:00 11/19/24 21:46 100 MG Furosemide 80 mg BIDD IV 11/17/24 18:00 11/20/24 06:03 80 MG Digoxin 0.125 mg MWF PO 11/18/24 10:00 11/18/24 11:30 0.125 MG Methylprednisolone Sodium Succinate 40 mg Q8HR IV 11/19/24 11:30 11/20/24 06:03 40 MG Albuterol 1.25 mg Q4HPRN PRN NEB 11/19/24 10:45 Budesonide 0.5 mg Q12HP NEB 11/19/24 10:45 11/20/24 06:30 0.5 MG Amiodarone HCl 200 mg DAILY PO 11/20/24 10:00 Lorazepam 1 mg Q6HP PRN IV 11/19/24 15:15 UNV Lorazepam 0.5 mg Q6HP PRN IV 11/19/24 22:50 11/19/24 23:19 0.5 MG Examination: GENERAL:Normal, LUNGS:Normal, CVS:Normal, NEURO:Abnormal (Periods of confusion) laboratory and microbiology Laboratory Tests 11/20/24 05:24 Test 11/20/24 05:24 Range/Units Serum Glucose 270 #H 74-106 mg/dL Problem List/Assessment/Plan Problem List/Assessment/Plan Sepsis with PNA/Influenza A Acute hypoxic respiratory failure secondary to above Acute on chronic decompensated HFrEF, NYHA Class IV Paroxysmal atrial fibrillation with rapid ventricular rate, Stage III, on amiodarone/Eliquis at home NSTEMI likely type II secondary to above Hypertension Diabetes mellitus Type II Hx of CVA Likely ERICA on CKD Recent hx of methamphetamine use, quit a month ago Obesity Plan/Recommendation (Dr. Sage) * Echocardiogram revealed EF 25% * There is global hypokinesis and flattening of the intraventricular septum during diastole suggestive of right-sided volume overload. [id number] left ventricular hypertrophy most prominent in the septum. Severely dilated right ventricle with moderately decreased systolic function. Severely dilated right atrium and moderately dilated left atrium. [id number] tricuspid regurgitation. PA systolic pressure is estimated at 45-50 mmHg. Small circumferential pericardial effusion. * Preload and afterload reduction as tolerated * GDMT for CHF as hemodynamics and renal function permits * Hold Eliquis therapy. Continue therapeutic Lovenox * [id number] Score 4 points. HAS-BLED Score 4 points * Antiarrhythmic, transitioned to oral amiodarone * Rate control, carvedilol and digoxin therapy (EOD given renal function) * ABX therapy per primary care team * Monitor ECG changes closely and notify * Consider Nephrology consultation Case discussed with . Thank you for allowing us to participate in this patient's care. Please call if you have any questions or concerns. This medical document was created using an electronic medical record system with voice recognition software and computerized dictation system. Although this document has been carefully reviewed, there might still be some phonetic and typographical errors. Occasional wrong-word or ``sound-alike substitutions may have occurred due to the inherent limitations of voice recognition software. These areas are purely typographical due to imperfections of the software programs and do not reflect any compromise in the patient's medical care. Please read the chart carefully and recognize, using context, where these substitutions have occurred. Plan discussed with: Patient Date of Service: Nov 20, 2024 Billing Provider: MIKA IVEY Common Visit Codes: [id number] INP/OBS CARE(HIGH) MIKA IEVY Nov 20, 2024 09:39
[2024-11-20] MEDS: AMIODARONE HCL 200 MG TAB PO SCH (10:12)
[2024-11-20] MEDS ORDERED: ASPI-325 PO (12:23)
[2024-11-20] MEDS ORDERED: PRED20TA2 PO (12:23)
[2024-11-20] MEDS ORDERED: AMIO200T13 PO (12:23)
[2024-11-20] MEDS ORDERED: DIGO1TAB48 PO (12:23)
[2024-11-20] MEDS ORDERED: CARV-216 PO (12:23)
[2024-11-20] MEDS ORDERED: LEVO500T91 PO (12:23)
[2024-11-20] MEDS ORDERED: TAMIFLU PO (12:23)
[2024-11-20] MEDS ORDERED: APIX5TAB PO (12:24)
[2024-11-20] MEDS ORDERED: FURO1TAB31 PO (12:26)
--- NOTE | 2024-11-20 21:15 | DVHPN2 ---
Assessment/Plan Assessment/Plan Progress note 68M with HFrEF, afib on eliquis, morbid obesity, admitted for flu a PNA seen by me today during rounds patient still wants to leave, convinced to not leave AMA, O2 bdelivered bedside. ss consult for home health Physical exam Alert oriented x3 Morbidly obese Using respiratory muscle B/l crackles, improved s1 s2 tachy JVD mandible Abdomen distended, fluid shift LE edema b/l, chronic venous changes Labs imaging and echo reviewed Assessment and plan acute on chronic hypoxic respiratory failure 2/2 acute on chronic systolic heart failure likely right heart failure possible pulm HTN Flu A PNA Morbid obesity Afib with RVR on eliquis DM old stroke CKD c/w o2 supp, bipap at night tamiflu avoid steroid for now 2/2 flu maintain spo2> 94% amio to oral, full AC rate control, started on dig and amio iss fsx4 basal insulin trend cr c/w diuresis, goal -2-3 L cardio pulm consult appreciated dvt ppx on full ac diet cardiac code status full code d/w patient re intubation, pt okay medical decision maker dwain (daughter) [phone] Plan discussed with: Patient, Daughter My Orders Orders - LEYLA BLANCO MD Procedure Category Date Status Time Abg W/ Co-Ox RT 11/20/24 Logged 14:19 Date of Service: Nov 20, 2024 Billing Provider: LEYLA BLANCO MD Common Visit Codes: [id number] INP/OBS CARE(HIGH) LEYLA BLANCO MD Nov 20, 2024 21:15
[2024-11-20] MEDS: INSULIN LANTUS (GLARGINE) 1 /0.01ml (100units/ml) SC SCH (21:39)
--- NOTE | 2024-11-20 21:54 | DVHPN2 ---
Progress Note - Dictate Date Seen: Nov 20, 2024 Medical Necessity Reason Pt with a Central, PICC or Fol: No The following are medically ne: Diaz Catheter Reason for diaz catheter: Strict I&O Subjective Patient seen and examined at bedside. On supplemental oxygen Overnight events reviewed. vital signs Vital Sign Date Time Temp Pulse Resp B/P (MAP) Pulse Ox O2 Delivery O2 Flow Rate FiO2 11/20/24 21:07 85 133/62 11/20/24 20:41 20 96 11/20/24 20:33 Nasal Cannula 3.0 11/20/24 20:33 28 11/20/24 16:08 97.9 97.9 Total Intake and Output 11/19/24 11/19/24 11/20/24 15:00 23:00 07:00 Intake Total 513 ml 250 ml 470 ml Output Total 600 ml 500 ml Balance -87 ml -250 ml 470 ml medications Current Medications Medications Dose Ordered Sig/Vin Route Start Time Stop Time Status Last Admin Dose Admin Ipratropium [place] 0.5 mg Q4HPRN PRN NEB 11/16/24 09:45 11/19/24 00:29 0.5 MG Levalbuterol HCl 0.625 mg Q6HR NEB 11/16/24 12:00 11/20/24 20:23 0.625 MG Levofloxacin 50 ml @ 50 mls/hr DAILY IV 11/16/24 10:00 11/16/24 10:44 50 MLS/HR Ceftriaxone Sodium 50 ml @ 100 mls/hr DAILY@09 IV 11/16/24 09:48 11/20/24 10:14 100 MLS/HR Oseltamivir Phosphate 75 mg Q12HR PO 11/16/24 10:00 11/21/24 09:59 11/20/24 21:08 75 MG Aspirin 81 mg DAILY PO 11/17/24 10:00 11/20/24 10:12 81 MG Diagnostic Test (Pha) 1 strip ACHS 11/16/24 11:30 11/20/24 21:08 1 STRIP Insulin Human Regular ACHS SC 11/16/24 11:30 11/20/24 21:08 8 UNITS Dextrose 50 ml UD PRN IV 11/16/24 09:45 Sodium Chloride 10 ml Q8HR IV 11/16/24 14:00 11/20/24 13:21 10 ML Acetaminophen 650 mg Q6HP PRN PO 11/16/24 09:45 Carvedilol 3.125 mg Q12HR PO 11/16/24 22:00 11/20/24 21:07 3.125 MG Enoxaparin Sodium 100 mg Q12HR SC 11/16/24 22:00 11/20/24 21:08 100 MG Furosemide 80 mg BIDD IV 11/17/24 18:00 11/20/24 17:26 80 MG Digoxin 0.125 mg MWF PO 11/18/24 10:00 11/20/24 10:12 0.125 MG Albuterol 1.25 mg Q4HPRN PRN NEB 11/19/24 10:45 Budesonide 0.5 mg Q12HP NEB 11/19/24 10:45 11/20/24 20:23 0.5 MG Amiodarone HCl 200 mg DAILY PO 11/20/24 10:00 11/20/24 10:12 200 MG Lorazepam 1 mg Q6HP PRN IV 11/19/24 15:15 UNV Lorazepam 0.5 mg Q6HP PRN IV 11/19/24 22:50 11/20/24 17:25 0.5 MG Insulin Glargine 12 units HS SC 11/20/24 22:00 objective Gen.: Patient lying in bed in no apparent distress. On supplemental oxygen Head: Normocephalic, atraumatic. Eyes: EOMI/PERRLA. Ears: Normal hearing. Normal anatomy. Neck/trachea: Trachea midline, supple. Nose: Normal external anatomy. Mouth: Moist mucous membranes. Chest: Decreased air entry bilaterally. Bilateral wheezing. No rhonchi. Cardiovascular: Positive S1, positive S2. Regular rate and rhythm. Abdomen: Positive bowel sounds in all 4 quadrants. Soft, non-tender, non- distended. : Deferred. Rectal: Deferred. Skin: Warm, dry. Intact. Extremities: 2+ radial pulses bilaterally. No lower extremity edema. Neuro: Awake, alert, oriented x3. No gross motor or sensory deficits. Cranial nerves II through XII intact. Gait not assessed. 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 Tamiflu course Continue bronchodilators/Pulmicort Continue antibiotics Incentive spirometry Wound care. Clinimix for nutritional support Monitor renal function Monitor electrolytes. Supplement as necessary. Disposition per hospitalist. Unsafe to discharge, patient altered. Daughter is concerned. We will reassess in the AM. Labs and imaging reviewed. Rest of plan as noted below. Plan: Supplemental oxygen Keep o2 saturation above 92% Continue bronchodilators Continue abx Blood and urine cultures show no growth after 48 hours Continue Tamiflu course Pulmonary hypertension, WHO Class II Management as per cardiology Wound care Diurese as tolerated w/ Lasix Monitor ins/outs Fluid restriction Monitor renal function Monitor electrolytes. Supplement as necessary. Cardiology recommendations appreciated On Coreg Therapeutic Lovenox Accu-Cheks, ISS Diet and lifestyle modifications for weight reduction Morbid obesity - complicates all care DVT prophylaxis Prognosis: Guarded given patient's multiple co-morbidities. Rest of plan per hospitalist and other consultants. Thank you Dr. Jacques, for allowing me to participate in this patient's care. Further recommendations will depend on the patient's clinical course. Please do not hesitate to contact me if you have any questions or concerns. This medical document was created using an electronic medical record system with [employer] dictation system. Although these documentations are being carefully reviewed, there may still be some phonetic and typographical changes. The errors are purely typographical, due to imperfection on the software program, and do not reflect any compromise in the patient's medical care. Plan discussed with: Daughter, Other (GAMALIEL Crenshaw) ANN MARIE LUNA MD Nov 20, 2024 21:54
[2024-11-21] VITALS (17 sets, daily range): BP systolic 117–139; BP diastolic 59–75; PULSE 73–104; RESP 0–20; TEMP 36.3; O2SAT 94–100
--- NOTE | 2024-11-21 15:21 | DVHPN2 ---
Subjective patient sleeping in bed. Doesnt want to sit up. no acute events. Reviewed: Care Plan Changes from previous H/P or p: No Changes Eyes: No Pain, No Vision change, No Conjunctivae inflammation, No Eyelid inflammation, No Other, No Redness ENT: No Ear pain, No Ear discharge, No Nose pain, No Nose discharge, No Nose congestion, No Mouth pain, No Mouth swelling, No Throat pain, No Throat swelling, No Other Cardiovascular: No Chest Pain, No Palpitations, No Orthopnea, No Paroxysmal Noc. Dyspnea, No Edema, No Lt Headedness, No Other Respiratory: Cough (Productive); No Dry; Shortness of breath, SOB with excertion; No Wheezing, No Hemoptysis, No Pleuritic Pain, No Sputum; Other (SOB at rest) Gastrointestinal: No Nausea, No Vomiting, No Abdominal Pain, No Diarrhea, No Constipation, No Melena, No Hematochezia, No Other Genitourinary: No Dysuria, No Frequency, No Incontinence, No Hematuria, No Retention, No Other Musculoskeletal: No other, No neck pain, No shoulder pain, No arm pain, No back pain, No hand pain, No leg pain, No foot pain Skin: No Rash, No Lesions, No Jaundice, No Bruising, No Other Objective Vitals Vital Signs Date Time Temp Pulse Resp B/P (MAP) Pulse Ox O2 Delivery O2 Flow Rate FiO2 11/21/24 14:27 36.3 88 18 96 11/21/24 13:00 129/69 (89) 11/21/24 11:26 Nasal Cannula 3.0 11/21/24 11:26 32 Intake/Output Intake and Output 11/21/24 07:00 Intake Total 1520 ml Output Total 520 ml Balance 1000 ml Intake Oral 1470 ml IV Total 50 ml Output Urine Total 520 ml # Voids 4 # Bowel Movements 4 General Appearance: Alert, Oriented X3; No Cooperative; No acute distress HEENT: Atraumatic Lungs: Other (Poor air movement to lower fileds. ) Cardiovascular: Regular rate, Normal S1, Normal S2 Abdomen: Normal bowel sounds Extremities: Other (Edema up to knees. ) Medications Current Medications Medications Dose Ordered Sig/Vin Route Start Time Stop Time Status Last Admin Dose Admin Ipratropium [place] 0.5 mg Q4HPRN PRN NEB 11/16/24 09:45 11/21/24 11:26 0.5 MG Levalbuterol HCl 0.625 mg Q6HR NEB 11/16/24 12:00 11/21/24 11:26 0.625 MG Levofloxacin 50 ml @ 50 mls/hr DAILY IV 11/16/24 10:00 11/16/24 10:44 50 MLS/HR Ceftriaxone Sodium 50 ml @ 100 mls/hr DAILY@09 IV 11/16/24 09:48 11/21/24 09:42 100 MLS/HR Aspirin 81 mg DAILY PO 11/17/24 10:00 11/21/24 09:43 81 MG Diagnostic Test (Pha) 1 strip ACHS 11/16/24 11:30 11/21/24 11:10 1 STRIP Insulin Human Regular ACHS SC 11/16/24 11:30 11/21/24 11:11 4 UNITS Dextrose 50 ml UD PRN IV 11/16/24 09:45 Sodium Chloride 10 ml Q8HR IV 11/16/24 14:00 11/21/24 14:01 10 ML Acetaminophen 650 mg Q6HP PRN PO 11/16/24 09:45 Carvedilol 3.125 mg Q12HR PO 11/16/24 22:00 11/21/24 09:44 3.125 MG Enoxaparin Sodium 100 mg Q12HR SC 11/16/24 22:00 11/21/24 09:45 100 MG Furosemide 80 mg BIDD IV 11/17/24 18:00 11/21/24 06:10 80 MG Digoxin 0.125 mg MWF PO 11/18/24 10:00 11/20/24 10:12 0.125 MG Albuterol 1.25 mg Q4HPRN PRN NEB 11/19/24 10:45 Budesonide 0.5 mg Q12HP NEB 11/19/24 10:45 11/21/24 06:47 0.5 MG Amiodarone HCl 200 mg DAILY PO 11/20/24 10:00 11/21/24 09:43 200 MG Lorazepam 1 mg Q6HP PRN IV 11/19/24 15:15 UNV Lorazepam 0.5 mg Q6HP PRN IV 11/19/24 22:50 11/21/24 02:02 0.5 MG Insulin Glargine 12 units HS SC 11/20/24 22:00 11/20/24 21:39 12 UNITS Laboratory Results Laboratory Tests 11/20/24 05:24 Urinalysis Test 11/16/24 04:10 Urine Color Yellow (Yellow) Urine Clarity Turbid (Clear) H Urine pH 5.5 (5.0-9.0) Urine Specific [place] 1.022 (1.001-1.035) Urine Protein 1+ (Negative) H Urine Ketones Negative (Negative) Urine Blood 2+ /uL (Negative) H Urine Nitrite Negative (Negative) Urine Bilirubin Negative (Negative) Urine Urobilinogen 2 mg/dL (Negative) H Urine Leukocyte Esterase 3+ /uL (Negative) Urine RBC 18 /hpf (0 - 3) Urine WBC Clumps Present /hpf (None Seen) Urine Microscopic WBC 131 /HPF (0-3) H Urine Squamous Epithelial Cells Few /hpf (<5) Urine Amorphous Crystals Few /hpf (None Seen) Urine Bacteria None seen /hpf (None Seen) Urine Glucose 4+ mg/dL (Normal) H Microbiology Microbiology Date/Time Source Procedure Growth Status 11/16/24 05:20 Blood Blood Culture - Final NO GROWTH AFTER 5 DAYS OF INCUBATION. Complete 11/16/24 04:10 Voided Urine Urine Culture - Final Complete Assessment/Plan Assessment/Plan acute on chronic hypoxic respiratory failure 2/2 acute on chronic systolic heart failure likely right heart failure possible pulm HTN Flu A PNA Morbid obesity Afib with RVR on eliquis DM old stroke CKD Plan to DC tommorow. c/w o2 supp, bipap at night tamiflu amio & dig iss fsx4 basal insulin c/w diuresis cardio pulm consult appreciated diet cardiac code status full code d/w patient re intubation, pt okay medical decision maker dwain (daughter) [phone] Plan discussed with: Patient, Daughter My Orders Orders - JUAN C ESTRADA MD Procedure Category Date Status Time Pt Request For Service PT 11/21/24 Logged 11:00 * Mechanical Lead CONS 11/21/24 Transmitted Consult Pt Request For Service PT 11/21/24 Logged 11:58 Date of Service: Nov 21, 2024 Billing Provider: JUAN C ESTRADA MD Common Visit Codes: [id number] INP/OBS CARE(HIGH) JUAN C ESTRADA MD Nov 21, 2024 15:21
--- NOTE | 2024-11-21 22:36 | DVHPN2 ---
Progress Note - Dictate Date Seen: Nov 21, 2024 Medical Necessity Reason Pt with a Central, PICC or Fol: No The following are medically ne: Diaz Catheter Reason for diaz catheter: Strict I&O Subjective Patient seen and examined at bedside. On supplemental oxygen Overnight events reviewed. vital signs Vital Sign Date Time Temp Pulse Resp B/P (MAP) Pulse Ox O2 Delivery O2 Flow Rate FiO2 11/21/24 21:00 98.5 104 18 117/72 (87) 97 98.5 11/21/24 20:18 Nasal Cannula 2.0 11/21/24 20:18 28 Total Intake and Output 11/20/24 11/20/24 11/21/24 15:00 23:00 07:00 Intake Total 280 ml 1200 ml 40 ml Output Total 520 ml Balance 280 ml 1200 ml -480 ml medications Current Medications Medications Dose Ordered Sig/Vin Route Start Time Stop Time Status Last Admin Dose Admin Ipratropium [place] 0.5 mg Q4HPRN PRN NEB 11/16/24 09:45 11/21/24 20:18 0.5 MG Levalbuterol HCl 0.625 mg Q6HR NEB 11/16/24 12:00 11/21/24 20:18 0.625 MG Levofloxacin 50 ml @ 50 mls/hr DAILY IV 11/16/24 10:00 11/16/24 10:44 50 MLS/HR Ceftriaxone Sodium 50 ml @ 100 mls/hr DAILY@09 IV 11/16/24 09:48 11/21/24 09:42 100 MLS/HR Aspirin 81 mg DAILY PO 11/17/24 10:00 11/21/24 09:43 81 MG Diagnostic Test (Pha) 1 strip ACHS 11/16/24 11:30 11/21/24 17:00 1 STRIP Insulin Human Regular ACHS SC 11/16/24 11:30 11/21/24 16:59 6 UNITS Dextrose 50 ml UD PRN IV 11/16/24 09:45 Sodium Chloride 10 ml Q8HR IV 11/16/24 14:00 11/21/24 22:04 10 ML Acetaminophen 650 mg Q6HP PRN PO 11/16/24 09:45 Carvedilol 3.125 mg Q12HR PO 11/16/24 22:00 11/21/24 09:44 3.125 MG Enoxaparin Sodium 100 mg Q12HR SC 11/16/24 22:00 11/21/24 09:45 100 MG Furosemide 80 mg BIDD IV 11/17/24 18:00 11/21/24 17:27 80 MG Digoxin 0.125 mg MWF PO 11/18/24 10:00 11/20/24 10:12 0.125 MG Albuterol 1.25 mg Q4HPRN PRN NEB 11/19/24 10:45 Budesonide 0.5 mg Q12HP NEB 11/19/24 10:45 11/21/24 20:18 0.5 MG Amiodarone HCl 200 mg DAILY PO 11/20/24 10:00 11/21/24 09:43 200 MG Lorazepam 1 mg Q6HP PRN IV 11/19/24 15:15 UNV Lorazepam 0.5 mg Q6HP PRN IV 11/19/24 22:50 11/21/24 17:25 0.5 MG Insulin Glargine 12 units HS SC 11/20/24 22:00 11/20/24 21:39 12 UNITS objective Gen.: Patient lying in bed in no apparent distress. On supplemental oxygen Head: Normocephalic, atraumatic. Eyes: EOMI/PERRLA. Ears: Normal hearing. Normal anatomy. Neck/trachea: Trachea midline, supple. Nose: Normal external anatomy. Mouth: Moist mucous membranes. Chest: Decreased air entry bilaterally. Bilateral wheezing. No rhonchi. Cardiovascular: Positive S1, positive S2. Regular rate and rhythm. Abdomen: Positive bowel sounds in all 4 quadrants. Soft, non-tender, non- distended. : Deferred. Rectal: Deferred. Skin: Warm, dry. Intact. Extremities: 2+ radial pulses bilaterally. No lower extremity edema. Neuro: Awake, alert, oriented x3. No gross motor or sensory deficits. Cranial nerves II through XII intact. Gait not assessed. laboratory and microbiology Laboratory Tests 11/20/24 05:24 Test 11/20/24 05:24 Range/Units Serum Glucose 270 #H 74-106 mg/dL Assessment/Plan Impression: Acute on chronic hypoxic respiratory failure Acute on chronic systolic CHF Pulmonary hypertension, RVSP 45-50 mmHg, WHO Class II Influenza type A Pneumonia, viral Morbid obesity, BMI 42.5 CKD Hx of nicotine dependence Events: Remains on supplemental oxygen 3 LPM NC Taper O2 as tolerated Arrange for home O2 on discharge Steroids DC'd as patient is altered. Continue bronchodilators/Pulmicort Continue antibiotics Incentive spirometry Wound care. Clinimix for nutritional support Monitor renal function Monitor electrolytes. Supplement as necessary. Disposition per hospitalist. Labs and imaging reviewed. Rest of plan as noted below. Plan: Supplemental oxygen Keep o2 saturation above 92% Continue bronchodilators Continue abx Blood and urine cultures show no growth after 48 hours Tamiflu course completed Pulmonary hypertension, WHO Class II Management as per cardiology Wound care Diurese as tolerated w/ Lasix Monitor ins/outs Fluid restriction Monitor renal function Monitor electrolytes. Supplement as necessary. Cardiology recommendations appreciated On Coreg Therapeutic Lovenox Accu-Cheks, ISS Diet and lifestyle modifications for weight reduction Morbid obesity - complicates all care DVT prophylaxis Prognosis: Guarded given patient's multiple co-morbidities. Rest of plan per hospitalist and other consultants. Thank you Dr. Jacques, for allowing me to participate in this patient's care. Further recommendations will depend on the patient's clinical course. Please do not hesitate to contact me if you have any questions or concerns. This medical document was created using an electronic medical record system with [employer] dictation system. Although these documentations are being carefully reviewed, there may still be some phonetic and typographical changes. The errors are purely typographical, due to imperfection on the software program, and do not reflect any compromise in the patient's medical care. Plan discussed with: Patient, Other (GAMALIEL Alcantara) ANN MARIE LUNA MD Nov 21, 2024 22:36
[2024-11-22 00:07] VITALS: PULSE 101; RESP 18; O2SAT 99
[2024-11-22 01:00] VITALS: BP 133/76; PULSE 89; RESP 18; TEMP 98.7; O2SAT 92
[2024-11-22 07:20] VITALS: PULSE 77; RESP 20; O2SAT 97
[2024-11-22 07:24] VITALS: PULSE 78; RESP 20; O2SAT 99
[2024-11-22 08:00] VITALS: RESP 18; O2SAT 95
[2024-11-22 09:00] VITALS: BP 103/52; PULSE 75; RESP 20; TEMP 98.1; O2SAT 95
--- NOTE | 2024-11-22 13:14 | DVHDS2 ---
Discharge Summary Date of Admission Nov 16, 2024 at 10:07 Date of Discharge: Oct 21, 2024 Labs/Diagnostic Data: Laboratory Results Test 11/22/24 11:01 11/20/24 14:53 11/20/24 05:24 11/18/24 07:34 POC Glucose 130 mg/dl (70-106) Blood Gas Specimen Type Arterial Blood Gas Sample Site Right radial Blood Gas Patient Temperature 37.0 Arterial Blood Date Drawn [id number] Arterial Blood pH 7.378 (7.350-7.450) Arterial Blood Partial Pressure CO2 52.7 mmHg (35.0-48.0) Arterial Blood Partial Pressure O2 52.0 mmHg (83.0-108.0) Arterial Blood HCO3 30.3 mmol/L (21.0-28.0) Arterial Blood Oxygen Saturation 86.2 % (94.0-98.0) Arterial Blood Base Excess 4.0 mmol/L (-2.0-3.0) Arterial Blood Oxyhemoglobin 84.6 % (94.0-98.0) Arterial Blood Carboxyhemoglobin 1.7 % (0.5-1.5) Arterial Blood Methemoglobin 0.1 % (0.0-1.5) Justice Test Yes Blood Gas Total Hemoglobin 13.20 g/dL (13.5-17.5) Blood Gas Modality Room air FiO2 % 21.0 Blood Gas Critical Value Read Back Yes. Blood Gas Notified Whom donna Jacques md. Blood Gas Notified Time [id number] Blood Gas Notified By kimi Jameson rt. White Blood Count 5.0 10^3/uL (4.4-10.8) Red Blood Count 4.61 10^6/uL (4.5-5.90) Hemoglobin 12.9 g/dL (13.5-17.5) Hematocrit 41.0 % (41.0-53.0) Mean Corpuscular Volume 88.9 fL (80.0-100.0) Mean Corpuscular Hemoglobin 28.0 pg (28.0-32.0) Mean Corpuscular Hemoglobin Concent 31.6 g/dL (32.0-36.0) Red Cell Distribution Width 17.0 % (11.8-14.3) Platelet Count 171 10^3/uL (140-450) Mean Platelet Volume 8.6 fL (6.9-10.8) Neutrophils (%) (Auto) 92.0 % (37.0-80.0) Lymphocytes (%) (Auto) 5.3 % (10.0-50.0) Monocytes (%) (Auto) 2.5 % (0.0-12.0) Eosinophils (%) (Auto) 0.0 % (0.0-7.0) Basophils (%) (Auto) 0.2 % (0.0-2.0) Neutrophils # (Auto) 4.6 10 ^3/uL (1.6-8.6) Lymphocytes # (Auto) 0.3 10 ^3/uL (0.4-5.4) Monocytes # (Auto) 0.1 10 ^3/uL (0-1.3) Eosinophils # (Auto) 0 10 ^3/uL (0-0.8) Basophils # (Auto) 0 10 ^3/uL (0-0.2) Nucleated Red Blood Cells 0.1 % Sodium Level 144 mmol/L (136-145) Potassium Level 4.2 mmol/L (3.5-5.1) Chloride Level 107 mmol/L (98-107) Carbon Dioxide Level 33 mmol/L (20-31) Anion Gap 4 (5-15) Blood Urea Nitrogen 36 mg/dL (9-23) Creatinine 1.21 mg/dL (0.700-1.30) Glomerular Filtration Rate Calc 64 mL/min (>90) BUN/Creatinine Ratio 29.8 (10.0-20.0) Serum Glucose 270 mg/dL (74-106) Calcium Level 8.6 mg/dL (8.7-10.4) Phosphorus Level 4.2 mg/dL (2.4-5.1) Magnesium Level 2.4 mg/dL (1.6-2.6) B-Type Natriuretic Peptide 263.14 pg/mL (0-100) Test 11/17/24 16:36 11/17/24 07:15 11/16/24 14:11 11/16/24 05:20 Blood Gas Liter Flow 5.00 Differential Total Cells Counted 100.0 (100) Neutrophils % (Manual) 91 (37.0-80.0) Band Neutrophils % (Manual) 0 Lymphocytes % (Manual) 4 (10.0-50.0) Monocytes % (Manual) 5 (0-12) Eosinophils % (Manual) 0 (0-7) Basophils % (Manual) 0 (0.0-2.0) Metamyelocytes % (manual) 0 Myelocytes % (Manual) 0 Promyelocytes % (Manual) 0 Blast Cells % (Manual) 0 Reactive Lymphocytes 0 Platelet Estimate Adequate Total Bilirubin 0.4 mg/dL (0.2-1.0) Aspartate Amino Transferase (AST) 23 U/L (13-40) Alanine Aminotransferase (ALT) 26 U/L (7-40) Alkaline Phosphatase 106 U/L (46-116) Total Protein 6.7 g/dL (5.7-8.2) Albumin 3.4 g/dL (3.2-4.8) Troponin I High Sensitivity 48 ng/L (</=54) Lactic Acid Level 0.7 mmol/L (0.4-2.0) Test 11/16/24 04:10 11/16/24 03:42 11/16/24 03:38 Urine Color Yellow (Yellow) Urine Clarity Turbid (Clear) Urine pH 5.5 (5.0-9.0) Urine Specific [place] 1.022 (1.001-1.035) Urine Protein 1+ (Negative) Urine Ketones Negative (Negative) Urine Blood 2+ /uL (Negative) Urine Nitrite Negative (Negative) Urine Bilirubin Negative (Negative) Urine Urobilinogen 2 mg/dL (Negative) Urine Leukocyte Esterase 3+ /uL (Negative) Urine RBC 18 /hpf (0 - 3) Urine WBC Clumps Present /hpf (None Seen) Urine Microscopic WBC 131 /HPF (0-3) Urine Squamous Epithelial Cells Few /hpf (<5) Urine Amorphous Crystals Few /hpf (None Seen) Urine Bacteria None seen /hpf (None Seen) Urine Glucose 4+ mg/dL (Normal) Hemoglobin A1c 6.7 % A1C (<5.7) Triglycerides Level 47 mg/dL (< 150) Cholesterol Level 74 mg/dL (< 200) LDL Cholesterol 40 mg/dL (< 100) HDL Cholesterol 30 mg/dL (40-59) Thyroid Stimulating Hormone (TSH) 4.13 uIU/mL (0.55-4.78) Influenza Type A Antigen Positive (Negative) Influenza Type B Antigen Negative (Negative) SARS-CoV-2 Antigen (Rapid) Negative (NEGATIVE) Other Laboratory Tests 11/20/24 05:24 Brief Hx & Hospital Course: Reason for Visit: Acute respiratory failure with hypoxia History of Present Illness On Admission. The patient is a 68-year-old male morbidly obese with past medical history of AFib, CVA, DM, and hypertension presented to [facility] ED with complaint of shortness of breaths. Patient reports symptoms progressively get worse with productive cough, fatigue, shortness a breath on exertion, hypoxia, O2 saturation of 88% on room air, increased work of breathing, bilateral extremity swelling, getting worse that prompted this visit. Patient was seen and evaluated in the ED, laboratory data shows WBC 7.4, platelets 167, sodium 139, potassium 4.0, BUN 29, creatinine 1.49, GFR 50, glucose 131, calcium 8.4 troponin 66, BNP 915.30, blood pressure 144/91, heart rate 126, temperature 97.9 F, O2 saturation improved to 94% on oxygen. Chest x-ray revealing cardiomegaly multifocal airspace disease, serology reports positive for influenza A. Patient was started on IV Lasix, given breathing treatment, please see medication orders section in the computer. On my assessment, patient denied chest pain, headache, no dizziness, no diaphoresis, currently on oxygen, no nausea, no vomiting, no fever, no chills. Patient was admitted for further evaluation medical management. CXR IMPRESSION: Cardiomegaly Multifocal airspace disease. Treated with ABX. FLU A was positive utilized bipap at night completed course of tamiflu amio & dig for Afib Patient responded to treatment. D/C home Condition at Discharge: Stable Final Diagnosis/Problems List afib rvr acute heart failure PH flu pna copde Discharge Disposition: Home Discharge Instruct/Medications Diet: See Comment Activity: See Comment Follow Up/Referral: pulmonary Medications: eliquis digoxin amio prednisone coreg levaquin tamiflu lasix Discharge Statement: "Patient was advised to return to the ER or call 911 if any headaches, dizziness, shortness of breath, chest pain, abdominal pain, bleeding, fevers, or worsening of medical condition. Patient was counseled about treatment plan, medications, possible side effects, patientverbalized understanding. All questions were answered to the best of my ability. This discharge took greater then 30 minutes in planning, reviewing documentation, counseling the patient, and discussing with other team members." ASSESSMENT ASSESSMENT Hospital Course Influenza A CHF Afib with RVR Assessment afib rvr acute heart failure PH flu pna copde Date of Service: Nov 22, 2024 Billing Provider: JUAN C ESTRADA MD Common Visit Codes: [id number] INP/OBS CARE(HIGH) JUAN C ESTRADA MD Nov 22, 2024 13:14
--- NOTE | 2024-11-22 22:08 | DVHPN2 ---
Progress Note - Dictate Date Seen: Nov 22, 2024 Medical Necessity Reason Pt with a Central, PICC or Fol: No Subjective Patient seen and examined at bedside. On supplemental oxygen Overnight events reviewed. vital signs Vital Sign Date Time Temp Pulse Resp B/P (MAP) Pulse Ox O2 Delivery O2 Flow Rate FiO2 11/22/24 10:00 74 103/55 11/22/24 09:00 98.1 20 95 98.1 11/22/24 08:00 Nasal Cannula* 2 28 Total Intake and Output 11/21/24 11/21/24 11/22/24 15:00 23:00 07:00 Intake Total 824 ml 994 ml 450 ml Output Total 976 ml Balance 824 ml 18 ml 450 ml medications Current Medications Medications Dose Ordered Sig/Vin Route Start Time Stop Time Status Last Admin Dose Admin Lorazepam 1 mg Q6HP PRN IV 11/19/24 15:15 UNV objective Gen.: Patient lying in bed in no apparent distress. On supplemental oxygen Head: Normocephalic, atraumatic. Eyes: EOMI/PERRLA. Ears: Normal hearing. Normal anatomy. Neck/trachea: Trachea midline, supple. Nose: Normal external anatomy. Mouth: Moist mucous membranes. Chest: Decreased air entry bilaterally. Bilateral wheezing. No rhonchi. Cardiovascular: Positive S1, positive S2. Regular rate and rhythm. Abdomen: Positive bowel sounds in all 4 quadrants. Soft, non-tender, non- distended. : Deferred. Rectal: Deferred. Skin: Warm, dry. Intact. Extremities: 2+ radial pulses bilaterally. No lower extremity edema. Neuro: Awake, alert, oriented x3. No gross motor or sensory deficits. Cranial nerves II through XII intact. Gait not assessed. laboratory and microbiology Laboratory Tests 11/20/24 05:24 Test 11/20/24 05:24 Range/Units Serum Glucose 270 #H 74-106 mg/dL Assessment/Plan Impression: Acute on chronic hypoxic respiratory failure Acute on chronic systolic CHF Pulmonary hypertension, RVSP 45-50 mmHg, WHO Class II Influenza type A Pneumonia, viral Morbid obesity, BMI 42.5 CKD Hx of nicotine dependence Events: Remains on supplemental oxygen 2 LPM NC Taper O2 as tolerated Arrange for home O2 on discharge Steroids DC'd as patient is altered. Continue bronchodilators Continue antibiotics Incentive spirometry Wound care. Clinimix for nutritional support Diurese to euvolemia Monitor renal function Monitor electrolytes. Supplement as necessary. Patient is stable for discharge from the pulmonary standpoint. Disposition per hospitalist. Labs and imaging reviewed. Rest of plan as noted below. Plan: Supplemental oxygen Keep o2 saturation above 92% Continue bronchodilators Continue abx Blood and urine cultures show no growth after 48 hours Tamiflu course completed Pulmonary hypertension, WHO Class II Management as per cardiology Wound care Diurese as tolerated w/ Lasix Monitor ins/outs Fluid restriction Monitor renal function Monitor electrolytes. Supplement as necessary. Cardiology recommendations appreciated On Coreg Therapeutic Lovenox Accu-Cheks, ISS Diet and lifestyle modifications for weight reduction Morbid obesity - complicates all care DVT prophylaxis Prognosis: Guarded given patient's multiple co-morbidities. Rest of plan per hospitalist and other consultants. Thank you Dr. Jacques, for allowing me to participate in this patient's care. Further recommendations will depend on the patient's clinical course. Please do not hesitate to contact me if you have any questions or concerns. This medical document was created using an electronic medical record system with [employer] computerized dictation system. Although these documentations are being carefully reviewed, there may still be some phonetic and typographical changes. The errors are purely typographical, due to imperfection on the software program, and do not reflect any compromise in the patient's medical care. Plan discussed with: Patient, Other (GAMALIEL Alcantara) ANN MARIE LUNA MD Nov 22, 2024 22:08
== END 2024-11-22 12:10 | disposition home or self-care (01) | DRG 193 ==
LOC: ER 03:17 → EDBD 03:17 → TELE 10:07 → TELE-WESTW 10:09 → TELE-EAST 11-19 17:14
PROVIDERS: ADMIT Nurse Practitioner Family; ATTEND Student in an Organized Health Care Education/Training Program
PROC: 05HF33Z Insertion of Infusion Device into Left Cephalic Vein, Percutaneous Approach (ICD-10-PCS; principal; 2024-11-18)
PROC: B54NZZA Ultrasonography of Left Upper Extremity Veins, Guidance (ICD-10-PCS; 2024-11-18)
PROC: 5A09357 Assistance with Respiratory Ventilation, Less than 24 Consecutive Hours, Continuous Positive Airway Pressure (ICD-10-PCS; 2024-11-18)
PROC: 5A09357 Assistance with Respiratory Ventilation, Less than 24 Consecutive Hours, Continuous Positive Airway Pressure (ICD-10-PCS; 2024-11-20)
DX: J10.01 Influenza due to other identified influenza virus with the same other identified influenza virus pneumonia (principal); I50.23 Acute on chronic systolic (congestive) heart failure; J96.01 Acute respiratory failure with hypoxia; N17.0 Acute kidney failure with tubular necrosis; I13.0 Hypertensive heart and chronic kidney disease with heart failure and stage 1 through stage 4 chronic kidney disease, or unspecified chronic kidney disease; N30.00 Acute cystitis without hematuria; J45.41 Moderate persistent asthma with (acute) exacerbation; I31.39 Other pericardial effusion (noninflammatory); Z68.41 Body mass index [BMI] 40.0-44.9, adult; J44.0 Chronic obstructive pulmonary disease with (acute) lower respiratory infection; J12.9 Viral pneumonia, unspecified; E66.01 Morbid (severe) obesity due to excess calories; Z20.822 Contact with and (suspected) exposure to COVID-19; N18.9 Chronic kidney disease, unspecified; I45.10 Unspecified right bundle-branch block; E11.22 Type 2 diabetes mellitus with diabetic chronic kidney disease; I27.29 Other secondary pulmonary hypertension; Z87.891 Personal history of nicotine dependence; Z86.73 Personal history of transient ischemic attack (TIA), and cerebral infarction without residual deficits; Z79.01 Long term (current) use of anticoagulants; E11.65 Type 2 diabetes mellitus with hyperglycemia; I48.0 Paroxysmal atrial fibrillation
CPT/HCPCS: 36415; 36600; 71045; 80048; 80053; 80061; 81001; 82805; 82962; 83036; 83605; 83735; 83880; 84100; 84443; 84484; 85007; 85025; 85027; 87040; 87086; 87426; 87804; 93005; 93306; 93925; 94640; 94660; 96365; 96375; 97163; 99291; G0378; J1815; J3490